=== PATIENT | female | born 1975 | race Caucasian/White ===

== ENCOUNTER 2019-09-14 15:10 | Inpatient (IN) | payer OTHER ==
--- NOTE | 2019-09-14 15:20 | PDOC ---
Rapid Medical Evaluation Time Seen by Provider: 09/14/19 15:17 Medical Evaluation: 09/14/19 15:17 CC: sent by PMD for vaginal bleeding and Cr-12 PE: No focal findings Orders: labs, urine Patient will proceed to ED for continued evaluation. Discharge Disposition - Diagnosis Renal failure - Referrals - Patient Instructions - Post Discharge Activity
[2019-09-14 15:22] VITALS: BMI 27.8
[2019-09-14 15:46] LABS: BASO % 0.7 % (0-2.0); EOS % 2.2 % (0-4.5); HEMATOCRIT 28.3 % (32.4-45.2); HEMOGLOBIN 9.5 GM/dL (10.7-15.3); LYMPH % 26.8 % (8-40); MCH 29.6 pg (25.7-33.7); MCHC 33.5 g/dl (32.0-36.0); MEAN CELL VOLUME 88.4 fl (80-96); MEAN PLT VOLUME 7.8 fl (7.5-11.1); MONO % 5.6 % (3.8-10.2); NEUT % 64.7 % (42.8-82.8); PLATELET COUNT 258 K/MM3 (134-434); RDW 14.7 % (11.6-15.6); WHITE BLOOD COUNT 6.1 K/mm3 (4.0-10.0)
[2019-09-14 15:58] LABS: EPI CELLS 1.4 /HPF (0-5/HPF); HYALINE CASTS 2 /lpf (0-8); PH,URINE 5.5 (5.0-8.0); URINE APPEARANCE CLEAR; URINE BACTERIA 237.3 /hpf (NEGATIVE); URINE BILIRUBIN NEGATIVE (NEGATIVE); URINE COLOR YELLOW; URINE GLUCOSE (UA) NEGATIVE (NEGATIVE); URINE KETONE NEGATIVE (NEGATIVE); URINE LEUK ESTERASE 1+ (NEGATIVE); URINE NITRITE NEGATIVE (NEGATIVE); URINE PROTEIN 1+ (NEGATIVE); URINE RBC 4 /hpf (0-4); URINE UROBILINOGEN 0.2 mg/dL (0.2-1.0); URINE WBC 23 /hpf (0-5)
[2019-09-14 16:02] LABS: INR 0.92 (0.83-1.09); PROTHROMBIN TIME (PATIENT) 10.9 SEC (9.7-13.0)
[2019-09-14 16:20] LABS: ALBUMIN 4.1 g/dl (3.4-5.0); BILIRUBIN,TOTAL 0.3 mg/dL (0.2-1); BLOOD UREA NITROGEN 85.8 mg/dL (7-18); CALCIUM 8.5 mg/dL (8.5-10.1); POTASSIUM 3.9 mmol/L (3.5-5.1)
[2019-09-14 16:34] LABS: CREATININE 12.3 mg/dL (0.55-1.3)
--- NOTE | 2019-09-14 17:12 | PDOC ---
History of Present Illness - General Chief Complaint: Vaginal Bleeding Stated Complaint: VAGINAL BLEEDING Time Seen by Provider: 09/14/19 15:17 History Source: Patient - History of Present Illness Initial Comments: 09/14/19 17:44 Ms. Sims is a 44 y/o woman w/hx HTN, iron deficiency anemia, remote spinal lympoma s/p surgery, chemo p/w vaginal bleeding since April, sent by PCP for creatinine elevation. She reports 1-2 pads vaginal bleeding since April, and presenting to her PCP for evaluation this week who ordered bloodwork. She reports being called that her Cr was very high (12) and that she needed to present to the ED. She reports that her menstrual periods typically irregular. During recent evaluation by payroll human resources assistant, noted "something in the uterus or ovaries that needs to be removed" (does not recall name of payroll human resources assistant). She denies any history of kidney disease, denies any frequent NSAID use, no family hx of renal disease, no recent changes to medications. SHe denies any dysuria, hematuria, frequency, urgency, chest pain, shortness of breath, weakness, nausea, vomiting. PCP: Dr. Villanueva Past History - Past Medical History Allergies/Adverse Reactions: Allergies Allergy/AdvReac Type Severity Reaction Status Date / Time Penicillins Allergy Rash Verified 09/14/19 15:18 - Psycho Social/Smoking Cessation Hx Smoking History: Current every day smoker Have you smoked in the past 12 months: Yes Number of Cigarettes Smoked Daily: 0 Information on smoking cessation initiated: Yes Hx Alcohol Use: Yes Drug/Substance Use Hx: No Review of Systems - Review of Systems Able to Perform ROS?: Yes Comments:: ROS: GENERAL/CONSTITUTIONAL: No fever or chills. No weakness. HEAD, EYES, EARS, NOSE AND THROAT: No change in vision. No ear pain or discharge. No sore throat. CARDIOVASCULAR: No chest pain or shortness of breath RESPIRATORY: No cough, wheezing, or hemoptysis. GASTROINTESTINAL: No nausea, vomiting, diarrhea or constipation. GENITOURINARY: Vaginal bleeding. No dysuria, frequency, or change in urination. MUSCULOSKELETAL: No joint or muscle swelling or pain. No neck or back pain. SKIN: No rash NEUROLOGIC: No headache, vertigo, loss of consciousness, or change in strength/ sensation. ENDOCRINE: No increased thirst. No abnormal weight change HEMATOLOGIC/LYMPHATIC: No anemia, easy bleeding, or history of blood clots. ALLERGIC/IMMUNOLOGIC: No hives or skin allergy. *Physical Exam - Vital Signs Last Vital Signs Temp Pulse Resp BP Pulse Ox 98 F 116 H 18 148/101 H 100 09/14/19 15:18 09/14/19 15:18 09/14/19 15:18 09/14/19 15:18 09/14/19 15:18 - Physical Exam PE: GENERAL: Awake, alert, and fully oriented, in no acute distress HEAD: No signs of trauma, normocephalic, atraumatic EYES: PERRLA, EOMI, sclera anicteric, conjunctiva clear ENT: Auricles normal inspection, hearing grossly normal, nares patent, oropharynx clear without exudates. Moist mucosa NECK: Normal ROM, supple, no lymphadenopathy, JVD, or masses LUNGS: No distress, speaks full sentences, clear to auscultation bilaterally HEART: Regular rate and rhythm, normal S1 and S2, no murmurs, rubs or gallops, peripheral pulses normal and equal bilaterally. ABDOMEN: Soft, nontender, normoactive bowel sounds. No guarding, no rebound. No masses EXTREMITIES : Normal inspection, Normal range of motion, no edema. No clubbing or cyanosis NEUROLOGICAL: Cranial nerves II through XII grossly intact. Normal speech, normal gait, no focal sensorimotor deficits SKIN: Warm, Dry, normal turgor, no rashes or lesions noted Pelvic exam: Cervical os visualized, closed with no lesions or active bleeding or discharge. Normal external genitalia. No cervical motion tenderness. ED Treatment Course - LABORATORY CBC & Chemistry Diagram: 09/16/19 06:30 09/16/19 10:40 - ADDITIONAL ORDERS Additional order review: Laboratory Results 09/14/19 09/14/19 09/14/19 15:31 15:31 15:31 PT with INR 10.90 INR 0.92 Sodium Potassium Chloride Carbon Dioxide Anion Gap BUN Creatinine Est GFR (CKD-EPI)AfAm Est GFR (CKD-EPI)NonAf Random Glucose Calcium Total Bilirubin AST ALT Alkaline Phosphatase Total Protein Albumin Urine Color Yellow Urine Appearance Clear Urine pH 5.5 Ur Specific [place] 1.010 Urine Protein 1+ H Urine Glucose (UA) Negative Urine Ketones Negative Urine Blood 1+ H Urine Nitrite Negative Urine Bilirubin Negative Urine Urobilinogen 0.2 Ur Leukocyte Esterase 1+ H Urine WBC (Auto) 23 Urine RBC (Auto) 4 Urine Casts (Auto) 2 U Epithel Cells (Auto) 1.4 Urine Bacteria (Auto) 237.3 Urine HCG, Qual Negative 09/14/19 15:31 PT with INR INR Sodium 135 L Potassium 3.9 Chloride 107 Carbon Dioxide 16 L Anion Gap 12 BUN 85.8 H Creatinine 12.3 H* Est GFR (CKD-EPI)AfAm 3.82 Est GFR (CKD-EPI)NonAf 3.29 Random Glucose 97 Calcium 8.5 Total Bilirubin 0.3 AST 14 L ALT 12 L Alkaline Phosphatase 120 H Total Protein 8.0 Albumin 4.1 Urine Color Urine Appearance Urine pH Ur Specific [place] Urine Protein Urine Glucose (UA) Urine Ketones Urine Blood Urine Nitrite Urine Bilirubin Urine Urobilinogen Ur Leukocyte Esterase Urine WBC (Auto) Urine RBC (Auto) Urine Casts (Auto) U Epithel Cells (Auto) Urine Bacteria (Auto) Urine HCG, Qual 09/14/19 15:31 RBC 3.20 L MCV 88.4 MCHC 33.5 RDW 14.7 MPV 7.8 Neutrophils % 64.7 Lymphocytes % 26.8 Monocytes % 5.6 Eosinophils % 2.2 Basophils % 0.7 Medical Decision Making - Medical Decision Making 44F w/hx spinal lymphoma s/p chemo/surgery p/w creatinine elevation on outpatient labs, as well as 4 months of vaginal bleeding. Ddx includes acute renal failure. Bleeding may be secondary to fibroids vs malignancy given history and renal failure. Plan: CBC CMP EKG CXR UA Urine culture Urine electrolytes Urine osmolality Serum osmololity Renal ultrasound Nephrology consult pending labs Dispo: Admit --- CMP - Cr - 12.9 UA - 1+ leuk esterase, 1+ blood CBC - Hg - 9.5 --- Case discussed with nephrology (Dr. Garg). Plan for admission for acute renal failure, plan for evaluation for permacath/HD. --- Case discussed with admitting team, patient admitted. Discharge - Discharge Information Problems reviewed: Yes Clinical Impression/Diagnosis: Renal failure Qualifiers: Renal failure chronicity: acute Acute renal failure type: unspecified Qualified Code(s): N17.9 - Acute kidney failure, unspecified Condition: Stable - Admission Yes - Follow up/Referral - Patient Discharge Instructions - Post Discharge Activity
--- NOTE | 2019-09-14 17:40 | PDOC ---
Attending Attestation - Resident Resident Name: Theodore Schulte - ED Attending Attestation I have performed the following: I have examined & evaluated the patient, The case was reviewed & discussed with the resident, I agree w/resident's findings & plan - HPI HPI: 09/18/19 12:49 Ms. Sims is a 44 y/o woman w/hx HTN, iron deficiency anemia, remote spinal lympoma s/p surgery, chemo p/w vaginal bleeding since April, sent by PCP for creatinine elevation. She reports 1-2 pads vaginal bleeding since April, and presenting to her PCP for evaluation this week who ordered bloodwork. She reports being called that her Cr was very high (12) and that she needed to present to the ED. She reports that her menstrual periods typically irregular. During recent evaluation by flat sorter processor, noted "something in the uterus or ovaries that needs to be removed" (does not recall name of flat sorter processor). She denies any history of kidney disease, denies any frequent NSAID use, no family hx of renal disease, no recent changes to medications. SHe denies any dysuria, hematuria, frequency, urgency, chest pain, shortness of breath, weakness, nausea, vomiting. - Physicial Exam PE: 09/14/19 17:38 Agree with the resident's HPI and PE as documented in the electronic medical record. NAD, +anxious. EOMI, PERRL, nl conjunctiva, anicteric; neck supple. lungs clear , +tachycardic, no murmurs, abdomen soft nontender. No rebound, no guarding. Back nontender. VIEIRA x4, no focal neuro deficits. No peripheral edema. normal color for ethnicity, WWP. pelvic exam with resident done, I as team driver. normal pink closed cervix, no active bleeding, no adnexal tenderness noted - Medical Decision Making 09/14/19 17:39 Vital Signs Temp Pulse Resp BP Pulse Ox 98 F 116 H 18 148/101 H 100 09/14/19 15:18 09/14/19 15:18 09/14/19 15:18 09/14/19 15:18 09/14/19 15:18 VS reviewed, +tachy and HTN. no fever abdominal exam unremarkable. pelvic exam unremarkable pt is alwo very anxious, but declines anxiolytic at this time not in pain ,declines analgesia labs and lytes from RME with Cr 12, no prior and pt denies history of renal insufficiency or CKD. UA/lytes sent/pending renal sono no hydro pelvic sono with b/l ov cyst and no torsion, thickened endometrial lining no active bleeding here txs sent, coags and H/H wnl. d/w Dr Garg for nephro cs. admit to medical service for management, nephro eval, dialysis and workup of new renal insufficiency 09/18/19 12:49
[2019-09-14] MEDS ORDERED: ACETAMINOPHEN 500 MG TABLET (FP) PO ONE (19:46)
[2019-09-14] MEDS ORDERED: ACETAMINOPHEN 325 MG TABLET (FP) PO PRN (20:44)
[2019-09-14] MEDS ORDERED: SODIUM CHLORIDE 1,000 ML IV SCH (20:45)
[2019-09-14] MEDS ORDERED: SODIUM CHLORIDE 0.45% 1,000 ML IV SCH (20:45)
--- NOTE | 2019-09-14 20:48 | CONSULT ---
Consult Consult Specialty:: Nephrology Reason for Consultation:: OLI - History of Present Illness Chief Complaint: sent in for abnormal labs History of Present Illness: Pt is a 44 year old female with pmhx of lymphoma, htn and anemia who was sent in for elevated creatinine. She initially went to see her PMD for vaginal bleeding, which she still gets. 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 She denies history of CKD. She is making urine. SHe denies dysuria or hematuria. She denies fevers or chills. She feels that her appetite is not as great as it used to be. She denies frequent NSAID use. She says that her spinal lymphoma was treated with chemo and radiation but does not remember specifics. She denies shortness of breath. She denies lower ext edema. She says [place] her brother was diagnosed with kidney disease two years ago and is now on dialysis. - History Source History Provided By: Patient - Past Medical History Cardio/Vascular: Yes: HTN Heme/Onc: Yes: Anemia Endocrine: Yes: Hypothyroidism - Alcohol/Substance Use Hx Alcohol Use: Yes - Smoking History Smoking history: Current every day smoker Have you smoked in the past 12 months: Yes Aproximately how many cigarettes per day: 0 Home Medications - Allergies Allergies/Adverse Reactions: Allergies Allergy/AdvReac Type Severity Reaction Status Date / Time Penicillins Allergy Rash Verified 09/14/19 15:18 Family Medical History Family Hx Renal Disease: Brother Review of Systems - Review of Systems Constitutional: reports: No Symptoms Eyes: reports: No Symptoms HENT: reports: No Symptoms Neck: reports: No Symptoms Cardiovascular: reports: No Symptoms Respiratory: reports: No Symptoms Gastrointestinal: reports: No Symptoms Genitourinary: reports: No Symptoms Musculoskeletal: reports: No Symptoms Integumentary: reports: No Symptoms Neurological: reports: No Symptoms Endocrine: reports: No Symptoms Hematology/Lymphatic: reports: No Symptoms Psychiatric: reports: No Symptoms Physical Exam Vital Signs: Vital Signs Temperature 98 F 09/14/19 15:18 Pulse Rate 116 H 09/14/19 15:18 Respiratory Rate 18 09/14/19 15:18 Blood Pressure 148/101 H 09/14/19 15:18 O2 Sat by Pulse Oximetry (%) 100 09/14/19 15:18 Constitutional: Yes: Calm Eyes: Yes: Conjunctiva Clear HENT: Yes: Atraumatic Neck: Yes: Supple Cardiovascular: Yes: S1, S2 Respiratory: Yes: CTA Bilaterally Gastrointestinal: Yes: Normal Bowel Sounds, Soft Renal/: Yes: WNL Musculoskeletal: Yes: WNL Edema: No Neurological: Yes: Oriented Psychiatric: Yes: Oriented Labs: CBC, BMP 09/14/19 15:31 09/14/19 15:31 Problem List - Problems (1) Acute renal failure (ARF) Code(s): N17.9 - ACUTE KIDNEY FAILURE, UNSPECIFIED (2) HTN (hypertension) Code(s): I10 - ESSENTIAL (PRIMARY) HYPERTENSION 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 Current Medications Generic Name Dose Route Start Last Admin Trade Name Freq PRN Reason Stop Dose Admin Acetaminophen 650 mg 09/14/19 20:44 Tylenol - PO Q8H PRN PAIN LEVEL 1 - 3 Sodium Chloride 1,000 mls @ 60 mls/hr 09/14/19 20:45 Normal Saline - IV ASDIR PATRICIO Sodium Chloride 1,000 mls @ 50 mls/hr 09/14/19 20:45 1/2 Normal Saline IV 09/15/19 20:44 ASDIR PATRICIO Sodium Bicarbonate 650 mg 09/14/19 20:48 Sodium Bicarbonate - PO BID PATRICIO Impression 1. OLI 2. anemia 3. vaginal bleeding 4. hx of spinal lymphoma 5. hypothyroisism 6. htn Plan - will start fluids - will send serologic workup, júnior anca ds dna - pts brother on HD, I called him per her request [phone], he does not know the etiology of his renal failure - renal ultrasound report reviewed - discussed treatment options including HD, PD and transplant. Pt wants to think about things and talk more tomorrow - will start po bicarb - scale shooter eval for bleeding
--- NOTE | 2019-09-14 21:17 | HP ---
Admitting History and Physical - Primary Care Physician PCP: Ant Villanueva - Admission Chief Complaint: Vaginal Bleeding, Abnormal Lab Value History of Present Illness: This is a 44 y/o woman with a PMHx of Asthma, RAVI, ?HTN, Hypothyroidism, remote Spinal Lymphoma (s/p surgery, chemo), Chronic Back Pain. Who presents to the ED sent in by her PCp for elevated Cr, prolonged vaginal bleeding. Patient reports having vaginal bleeding with 1/2 dollar size clots since last April. She reports going to her ENGINE MANAGER last week for same. Per the patient after the pelvic exam, she was told the doctor "felt something" in her uterus which she had to have an US. Patient reports having blood work done last week, per her PCP. She was told by her PCP that her Cr was 12 and that she would be admitted to the hospital. Patient reports having chronic back pain which she believed was due to her Spinal Lymphoma hx. Patient denies fever, chills, cough, SOB, CP, palpitations, AP, N/V/D, constipation. History Source: Patient Limitations to Obtaining History: No Limitations - Past Medical History Cardiovascular: Yes: Other (Elevated BP) Pulmonary: Yes: Asthma ...: No Heme/Onc: Yes: Anemia, Other (Spinal Lymphoma (s/p surgery, chemo)) Endocrine: Yes: Hypothyroidism - Past Surgical History Past Surgical History: Yes: Cholecystectomy Additional Past Surgical History: Partial Thyroidectomy - Smoking History Smoking history: Never smoked Have you smoked in the past 12 months: No Aproximately how many cigarettes per day: 0 - Alcohol/Substance Use Hx Alcohol Use: No History of Substance Use: reports: Marijuana (daily use) - Social History Usual Living Arrangement: Yes: With Significant Other Do you think of yourself as: Straight/Heterosexual ADL: Independent History of Recent Travel: No Home Medications - Allergies Allergies/Adverse Reactions: Allergies Allergy/AdvReac Type Severity Reaction Status Date / Time Penicillins Allergy Rash Verified 09/14/19 15:18 Family Medical History Family Hx Respiratory Disorders: Mother (Respiratory Failure- ) Other Family History: Renal (ESRD)- Brother Review of Systems - Review of Systems Constitutional: reports: No Symptoms Eyes: reports: No Symptoms HENT: reports: No Symptoms Neck: reports: No Symptoms Cardiovascular: reports: No Symptoms Respiratory: reports: No Symptoms Gastrointestinal: reports: No Symptoms Genitourinary: reports: Vaginal Bleeding Breasts: reports: No Symptoms Reported Musculoskeletal: reports: Back Pain Integumentary: reports: No Symptoms Neurological: reports: No Symptoms Endocrine: reports: No Symptoms Hematology/Lymphatic: reports: No Symptoms Psychiatric: reports: No Symptoms Pain Intensity: 4 Physical Examination Vital Signs: Vital Signs Temperature 98 F 09/14/19 15:18 Pulse Rate 116 H 09/14/19 15:18 Respiratory Rate 18 09/14/19 15:18 Blood Pressure 148/101 H 09/14/19 15:18 O2 Sat by Pulse Oximetry (%) 100 09/14/19 15:18 Constitutional: Yes: No Distress, Calm, Pallor Eyes: Yes: WNL, Conjunctiva Clear, EOM Intact, PERRL HENT: Yes: WNL, Atraumatic, Normocephalic Neck: Yes: WNL, Supple, Trachea Midline Cardiovascular: Yes: WNL, Regular Rate and Rhythm, S1, S2 Respiratory: Yes: WNL, Regular, CTA Bilaterally Gastrointestinal: Yes: WNL, Normal Bowel Sounds, Soft ...Rectal Exam: Yes: Deferred Renal/: Yes: WNL, Menses Present (scant). No: CVA Tenderness - Left, CVA Tenderness - Right Breast(s): Yes: WNL Musculoskeletal: Yes: WNL Extremities: Yes: WNL Edema: No Peripheral Pulses WNL: Yes Integumentary: Yes: WNL Neurological: Yes: WNL, Alert, Oriented, Cran Nerves II-XII Intact ...Motor Strength: WNL Psychiatric: Yes: WNL, Alert, Oriented Labs: CBC, BMP 09/14/19 15:31 09/14/19 15:31 Laboratory Results - last 24 hr 09/14/19 09/14/19 09/14/19 15:31 15:31 15:31 WBC 6.1 RBC 3.20 L Hgb 9.5 L Hct 28.3 L MCV 88.4 MCH 29.6 MCHC 33.5 RDW 14.7 Plt Count 258 MPV 7.8 Absolute Neuts (auto) 3.9 Neutrophils % 64.7 Lymphocytes % 26.8 Monocytes % 5.6 Eosinophils % 2.2 Basophils % 0.7 Nucleated RBC % 0 PT with INR INR Sodium 135 L Potassium 3.9 Chloride 107 Carbon Dioxide 16 L Anion Gap 12 BUN 85.8 H Creatinine 12.3 H* Est GFR (CKD-EPI)AfAm 3.82 Est GFR (CKD-EPI)NonAf 3.29 Random Glucose 97 Serum Osmolality 314 H Calcium 8.5 Total Bilirubin 0.3 AST 14 L ALT 12 L Alkaline Phosphatase 120 H Total Protein 8.0 Albumin 4.1 Urine Color Urine Appearance Urine pH Ur Specific [place] Urine Protein Urine Glucose (UA) Urine Ketones Urine Blood Urine Nitrite Urine Bilirubin Urine Urobilinogen Ur Leukocyte Esterase Urine WBC (Auto) Urine RBC (Auto) Urine Casts (Auto) U Epithel Cells (Auto) Urine Bacteria (Auto) Urine Osmolality Ur Random Creatinine U Random Total Protein Ur Random Sodium Urine HCG, Qual Negative 09/14/19 09/14/19 09/14/19 15:31 15:31 18:46 WBC RBC Hgb Hct MCV MCH MCHC RDW Plt Count MPV Absolute Neuts (auto) Neutrophils % Lymphocytes % Monocytes % Eosinophils % Basophils % Nucleated RBC % PT with INR 10.90 INR 0.92 Sodium Potassium Chloride Carbon Dioxide Anion Gap BUN Creatinine Est GFR (CKD-EPI)AfAm Est GFR (CKD-EPI)NonAf Random Glucose Serum Osmolality Calcium Total Bilirubin AST ALT Alkaline Phosphatase Total Protein Albumin Urine Color Yellow Urine Appearance Clear Urine pH 5.5 Ur Specific [place] 1.010 Urine Protein 1+ H Urine Glucose (UA) Negative Urine Ketones Negative Urine Blood 1+ H Urine Nitrite Negative Urine Bilirubin Negative Urine Urobilinogen 0.2 Ur Leukocyte Esterase 1+ H Urine WBC (Auto) 23 Urine RBC (Auto) 4 Urine Casts (Auto) 2 U Epithel Cells (Auto) 1.4 Urine Bacteria (Auto) 237.3 Urine Osmolality Ur Random Creatinine 59.0 U Random Total Protein Ur Random Sodium Urine HCG, Qual 09/14/19 09/14/19 09/14/19 18:46 18:46 18:46 WBC RBC Hgb Hct MCV MCH MCHC RDW Plt Count MPV Absolute Neuts (auto) Neutrophils % Lymphocytes % Monocytes % Eosinophils % Basophils % Nucleated RBC % PT with INR INR Sodium Potassium Chloride Carbon Dioxide Anion Gap BUN Creatinine Est GFR (CKD-EPI)AfAm Est GFR (CKD-EPI)NonAf Random Glucose Serum Osmolality Calcium Total Bilirubin AST ALT Alkaline Phosphatase Total Protein Albumin Urine Color Urine Appearance Urine pH Ur Specific [place] Urine Protein Urine Glucose (UA) Urine Ketones Urine Blood Urine Nitrite Urine Bilirubin Urine Urobilinogen Ur Leukocyte Esterase Urine WBC (Auto) Urine RBC (Auto) Urine Casts (Auto) U Epithel Cells (Auto) Urine Bacteria (Auto) Urine Osmolality 208 L Ur Random Creatinine U Random Total Protein 32.7 H Ur Random Sodium 34 L Urine HCG, Qual Intake & Output 09/12/19 09/13/19 09/14/19 09/15/19 23:59 23:59 23:59 23:59 Weight 71.214 kg Current Medications Generic Name Dose Route Start Last Admin Trade Name Marti PRN Reason Stop Dose Admin Acetaminophen 650 mg 09/14/19 20:44 Tylenol - PO Q8H PRN PAIN LEVEL 1 - 3 Sodium Chloride 1,000 mls @ 50 mls/hr 09/14/19 20:45 09/14/19 22:45 1/2 Normal Saline IV 09/15/19 20:44 50 mls/hr ASDIR PATRICIO Administration Sodium Bicarbonate 650 mg 09/14/19 20:48 09/14/19 22:47 Sodium Bicarbonate - PO 650 mg BID PATRICIO Administration Prescription Monitoring Program Others' Prescriptions Patient Name: Aurora Sims Date: 1975 Address: [address] [place] [address] Sex: Female Rx Written Rx Dispensed Drug Quantity Days Supply Prescriber Name 08/21/2019 08/22/2019 oxycodone-acetaminophen 7.5-325 mg tablet 90 30 Yanci Madrid (CLARA) 07/17/2019 07/22/2019 oxycodone-acetaminophen 7.5-325 mg tablet 90 30 Yanci Madrid ([place]) 06/20/2019 06/24/2019 oxycodone-acetaminophen 7.5-325 mg tablet 90 30 Yanci Madrid (PA) 05/24/2019 05/27/2019 oxycodone-acetaminophen 7.5-325 mg tablet 90 30 Yanic Madrid (CLARA) 04/26/2019 04/28/2019 oxycodone-acetaminophen 7.5-325 mg tablet 90 30 Yanci Madrid (CLARA) 03/29/2019 03/29/2019 oxycodone-acetaminophen 7.5-325 mg tablet 90 30 Yanci Madrid (CLARA) 02/23/2019 02/23/2019 oxycodone-acetaminophen 7.5-325 mg tablet 90 30 Yanci Madrid ([place]) 01/23/2019 01/23/2019 oxycodone-acetaminophen 7.5-325 mg tablet 90 30 Yanci Madrid (CLARA) 12/21/2018 12/21/2018 oxycodone-acetaminophen 7.5-325 mg tablet 90 30 Yanci Madrid (CLARA) 11/22/2018 11/22/2018 oxycodone-acetaminophen 7.5-325 mg tablet 90 30 Jeronimo Sandoval MD 11/07/2018 11/08/2018 oxycodone-acetaminophen 7.5-325 mg tablet 21 7 Jeronimo Sandoval MD 09/14/2018 10/04/2018 oxycodone-acetaminophen 7.5-325 mg tablet 90 30 Virgilio Sunshine M Imaging - Results Chest X-ray: Report Reviewed, Image Reviewed Ultrasound: Report Reviewed, Image Reviewed Problem List - Problems (1) Acute renal failure (ARF) 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: ?etiology Patient denies frequent NSAID use Nephrology following Will start gentle IVF Probable- dialysis if Cr does not improve post IVF Cardoso Catheter for INOs Urine Osmo, Na Spot, Urine lytes-pending UA- +1 protein, +1blood, +1 leukocyte esterase, 23 WBCs, 237 bacteria Urine Culture pending Renal US- reviewed Bladder US-reviewed Monitor CBC, BMP Monitor vitals Code(s): N17.9 - ACUTE KIDNEY FAILURE, UNSPECIFIED (2) RAVI (iron deficiency anemia) 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: stable No current med Monitor CBC Hgb9.5, Hct 28.3 Will transfuse if HGb < 7.0 Code(s): D50.9 - IRON DEFICIENCY ANEMIA, UNSPECIFIED (3) Vaginal bleeding 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: Patient reports Menorrhagia with clots since last April- bleeding scant at present Renal US-6.4cm, 4.7cm right ovarian cysts. 2.3cm left ovarian cyst Hgb 9.5 Hct 28.3 Upreg-neg Appreciate ENGINE MANAGER consult Monitor CBC, BMP Monitor vitals Hold ACs Code(s): N93.9 - ABNORMAL UTERINE AND VAGINAL BLEEDING, UNSPECIFIED (4) HTN (hypertension) 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: sub optimal Not on current medications Consider ARB, will avoid ACE1 secondary to ARF Monitor BP Code(s): I10 - ESSENTIAL (PRIMARY) HYPERTENSION (5) Hypothyroidism 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: Continue Levothyroxine TSH in am Code(s): E03.9 - HYPOTHYROIDISM, UNSPECIFIED (6) Chronic back pain 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: Likely secondary to spinal lymphoma hx s/p sx and chemo, per pt [place] [employer]ER OPERATOR SURFACE verified- oxycodone-acetaminophen 7.5-325mg (last filled 08/22/19) Tylenol prn (Painscale 1-5) Oxycodone prn (Painscale 6-10) Code(s): M54.9 - DORSALGIA, UNSPECIFIED; G89.29 - OTHER CHRONIC PAIN (7) Asymptomatic bacteriuria 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: UA- +1 protein, +1 blood, +1 leukocyte esterase, 23 WBC, 237 Bacteria Urine Culture-pending Will not treat, awaiting culture results- since patient is asymptomatic: denies dysuria, frequency, burning, afebrile, no leukocytosis Monitor CBC Monitor vitals Code(s): R82.71 - BACTERIURIA (8) Marijuana smoker, continuous 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: counseled patient on marijuana cessation Code(s): F12.90 - CANNABIS USE, UNSPECIFIED, UNCOMPLICATED 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 This is a 44 y/o woman with a PMHx of HTN, RAVI, Hypothyroidism, remote Spinal Lympoma (s/p surgery, chemo), Chronic Back Pain. Admitted to M/S for Acute Renal Failure, Menorrhagia for further evaluation of their emergent condition. Plan: See Problem List FEN NS@60ml/hr Replete lytes prn NPO DVT ppx OOB SCDs Hold AC secondary to Menorrhagia Code Status: Full Code Dispo- Requires Inpatient Care Visit type - Emergency Visit Emergency Visit: Yes ED Registration Date: 09/14/19 Care time: The patient presented to the Emergency Department on the above date and was hospitalized for further evaluation of their emergent condition. - New Patient This patient is new to me today: Yes Date on this admission: 09/14/19 - Critical Care Critical Care patient: No
[2019-09-14] MEDS: SODIUM BICARBONATE 650 MG TABLET PO SCH ×2 (22:45→22:47)
[2019-09-15] MEDS ORDERED: ACETAMINOPHEN 325 MG TABLET (FP) ONE (04:21)
[2019-09-15] MEDS ORDERED: LEVOTHYROXINE NA 25 MCG TABLET (FP) PO SCH (07:19)
[2019-09-15] MEDS ORDERED: oxyCODONE HCL 5 MG TABLET PO PRN (07:24)
[2019-09-15 08:39] LABS: BASO % 0.7 % (0-2.0); EOS % 2.3 % (0-4.5); HEMOGLOBIN 8.9 GM/dL (10.7-15.3); LYMPH % 28.8 % (8-40); MCH 30.3 pg (25.7-33.7); MCHC 34.4 g/dl (32.0-36.0); MEAN CELL VOLUME 88.1 fl (80-96); MONO % 6.4 % (3.8-10.2); NEUT % 61.8 % (42.8-82.8); PLATELET COUNT 236 K/MM3 (134-434); RBC 2.95 M/mm3 (3.60-5.2); RDW 14.5 % (11.6-15.6); WHITE BLOOD COUNT 4.4 K/mm3 (4.0-10.0)
[2019-09-15 09:11] LABS: BLOOD UREA NITROGEN 90.1 mg/dL (7-18); POTASSIUM 3.6 mmol/L (3.5-5.1)
[2019-09-15 09:15] LABS: CREATININE 12.6 mg/dL (0.55-1.3)
[2019-09-15] MEDS: SODIUM BICARBONATE 650 MG TABLET PO SCH ×2 (09:39→22:33)
--- NOTE | 2019-09-15 11:09 | PN ---
Progress Note, Physician - Current Medication List Current Medications: Active Medications Acetaminophen (Tylenol -) 650 mg PO Q8H PRN PRN Reason: PAIN LEVEL 1 - 3 Sodium Chloride (1/2 Normal Saline) 1,000 mls @ 50 mls/hr IV ASDIR [facility] Stop: 09/15/19 20:44 Last Admin: 09/14/19 22:45 Dose: 50 mls/hr Levothyroxine Sodium (Synthroid -) 25 mcg PO DAILY@0700 [facility] Last Admin: 09/15/19 09:39 Dose: 25 mcg Oxycodone HCl (Roxicodone -) 5 mg PO Q8H PRN PRN Reason: PAIN LEVEL 7 - 10 Sodium Bicarbonate (Sodium Bicarbonate -) 650 mg PO BID [facility] Last Admin: 09/15/19 09:39 Dose: 650 mg - Objective Vital Signs: Vital Signs Temperature 98.8 F 09/14/19 23:25 Pulse Rate 83 09/15/19 06:43 Respiratory Rate 18 09/15/19 06:43 Blood Pressure 119/66 09/15/19 06:43 O2 Sat by Pulse Oximetry (%) 99 09/15/19 06:43 Labs: CBC, BMP 09/15/19 08:10 09/15/19 08:10 INR, PTT INR 0.92 (0.83-1.09) 09/14/19 15:31 Problem List - Problems (1) Asymptomatic bacteriuria Code(s): R82.71 - BACTERIURIA (2) HTN (hypertension) Code(s): I10 - ESSENTIAL (PRIMARY) HYPERTENSION (3) Hypothyroidism Code(s): E03.9 - HYPOTHYROIDISM, UNSPECIFIED (4) RAVI (iron deficiency anemia) Code(s): D50.9 - IRON DEFICIENCY ANEMIA, UNSPECIFIED (5) Renal failure Code(s): N19 - UNSPECIFIED KIDNEY FAILURE (6) Vaginal bleeding Code(s): N93.9 - ABNORMAL UTERINE AND VAGINAL BLEEDING, UNSPECIFIED
[2019-09-15] MEDS ORDERED: MIDAZOLAM HCL 2 MG/2 ML SINGLE DOSE VIAL ONE (11:27)
[2019-09-15] MEDS ORDERED: PROPOFOL 20 ML ONE ×2 (11:27)
--- NOTE | 2019-09-15 11:50 | EKG ---
Test Reason : Blood Pressure : / mmHG Vent. Rate : 081 BPM Atrial Rate : 081 BPM P-R Int : 130 ms QRS Dur : 076 ms QT Int : 408 ms P-R-T Axes : 058 051 055 degrees QTc Int : 473 ms SINUS RHYTHM WITH PREMATURE ATRIAL COMPLEXES NO PREVIOUS ECGS AVAILABLE Confirmed by AGGIE DESAI MD ([id number]) on 09/15/2019 11:50:02 AM Referred By: Confirmed By:AGGIE DESAI MD
[2019-09-15] MEDS ORDERED: ceFAZolin SODIUM 1 GM VIAL IVPB ONE (11:57)
[2019-09-15] MEDS ORDERED: LIDOCAINE HCL 1%, 10 MG/ML (20ML VIAL) NR ONE (12:14)
--- NOTE | 2019-09-15 12:30 | OP ---
Operative Note - Note: Operative Date: 09/15/19 Pre-Operative Diagnosis: ARF Operation: Insertion of permacath Post-Operative Diagnosis: Same as Pre-op Surgeon: Arias Emery Anesthesia: Fractional Estimated Blood Loss (mls): 20 Operative Report Dictated: Yes
[2019-09-15] MEDS ORDERED: SODIUM CHLORIDE 0.45% 1,000 ML IV SCH (13:04)
[2019-09-15] MEDS ORDERED: oxyCODONE HCL 5 MG TABLET PO ONE (14:05)
[2019-09-15] MEDS ORDERED: SODIUM CHLORIDE 250 ML IV PRN ×2 (14:31→19:38)
--- NOTE | 2019-09-15 14:34 | PN ---
Progress Note, Physician History of Present Illness: Pt seen and examined at bedside. She is awake and alert. SHe had the permacath placed today. - Current Medication List Current Medications: Active Medications Acetaminophen (Tylenol -) 650 mg PO Q8H PRN PRN Reason: PAIN LEVEL 1 - 3 Sodium Chloride (1/2 Normal Saline) 1,000 mls @ 50 mls/hr IV ASDIR PATRICIO Stop: 09/15/19 20:44 Levothyroxine Sodium (Synthroid -) 25 mcg PO DAILY@0700 PAT[facility]IC[facility] Ondansetron HCl (Zofran Injection) 4 mg IVPUSH Q6H PRN PRN Reason: NAUSEA AND/OR VOMITING Oxycodone HCl (Roxicodone -) 5 mg PO Q8H PRN PRN Reason: PAIN LEVEL 7 - 10 Sodium Bicarbonate (Sodium Bicarbonate -) 650 mg PO BID PATRICIO - Objective Vital Signs: Vital Signs Temperature 98.0 F 09/15/19 14:00 Pulse Rate 82 09/15/19 14:00 Respiratory Rate 16 09/15/19 14:00 Blood Pressure 146/88 09/15/19 14:00 O2 Sat by Pulse Oximetry (%) 100 09/15/19 14:00 Constitutional: Yes: Calm Eyes: Yes: Conjunctiva Clear HENT: Yes: Atraumatic Neck: Yes: Supple Cardiovascular: Yes: S1, S2 Respiratory: Yes: CTA Bilaterally Gastrointestinal: Yes: Soft Genitourinary: Yes: WNL Musculoskeletal: Yes: WNL Edema: No Neurological: Yes: Oriented Psychiatric: Yes: Oriented Labs: CBC, BMP 09/15/19 08:10 09/15/19 08:10 INR, PTT INR 0.92 (0.83-1.09) 09/14/19 15:31 Problem List - Problems (1) Acute renal failure (ARF) Code(s): N17.9 - ACUTE KIDNEY FAILURE, UNSPECIFIED (2) HTN (hypertension) Code(s): I10 - ESSENTIAL (PRIMARY) HYPERTENSION 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 Current Medications Generic Name Dose Route Start Last Admin Trade Name Freq PRN Reason Stop Dose Admin Acetaminophen 650 mg 09/15/19 13:04 Tylenol - PO Q8H PRN PAIN LEVEL 1 - 3 Sodium Chloride 1,000 mls @ 50 mls/hr 09/15/19 13:04 1/2 Normal Saline IV 09/15/19 20:44 ASDIR PATRICIO Sodium Chloride 250 mls @ 3,000 mls/hr 09/15/19 14:31 Normal Saline - IV 09/16/19 14:31 PRN PRN Hypotension during Dialysis Levothyroxine Sodium 25 mcg 09/16/19 07:00 Synthroid - PO DAILY@0700 [facility] Ondansetron HCl 4 mg 09/15/19 14:05 Zofran Injection IVPUSH Q6H PRN NAUSEA AND/OR VOMITING Oxycodone HCl 5 mg 09/15/19 13:04 Roxicodone - PO Q8H PRN PAIN LEVEL 7 - 10 Sodium Bicarbonate 650 mg 09/15/19 22:00 Sodium Bicarbonate - PO BID [facility] Impression 1. OLI 2. anemia 3. vaginal bleeding 4. hx of spinal lymphoma 5. hypothyroisism 6. htn Plan - pt s/p permacath - d/c fluids - d/c po bicarb - HD today - serlogic workup ordered - discussed PD option again, she will think about it - discussed kidney biopsy, she will think about it
[2019-09-15] MEDS ORDERED: ONDANSETRON 4 MG/2 ML VIAL ONE (14:46)
[2019-09-15] MEDS: ONDANSETRON 4 MG/2 ML VIAL IVPUSH PRN (14:53)
[2019-09-15] MEDS ORDERED: oxyCODONE HCL 5 MG TABLET ONE (15:08)
--- NOTE | 2019-09-15 15:34 | PN ---
Progress Note, Physician Chief Complaint: abnormal lab results, vaginal bleeding reports vaginal bleeding much more scarce today, using panty liner nauseas, vomitted in dialysis History of Present Illness: 44 year old female with PMH asthma, RAVI, HTN, hypothyroidism, remote spinal lymphoma, chronic back pain presented to the ED with vaginal bleed and cr of 12 , has never been told she had ckd. - Current Medication List Current Medications: Active Medications Acetaminophen (Tylenol -) 650 mg PO Q8H PRN PRN Reason: PAIN LEVEL 1 - 3 Sodium Chloride (1/2 Normal Saline) 1,000 mls @ 50 mls/hr IV ASDIR PATRICIO Stop: 09/15/19 20:44 Sodium Chloride (Normal Saline -) 250 mls @ 3,000 mls/hr IV PRN PRN PRN Reason: Hypotension during Dialysis Stop: 09/16/19 14:31 Levothyroxine Sodium (Synthroid -) 25 mcg PO DAILY@0700 [facility] Ondansetron HCl (Zofran Injection) 4 mg IVPUSH Q6H PRN PRN Reason: NAUSEA AND/OR VOMITING Last Admin: 09/15/19 14:53 Dose: 4 mg Oxycodone HCl (Roxicodone -) 5 mg PO Q8H PRN PRN Reason: PAIN LEVEL 7 - 10 Sodium Bicarbonate (Sodium Bicarbonate -) 650 mg PO BID [facility] - Objective Vital Signs: Vital Signs Temperature 97.7 F 09/15/19 14:57 Pulse Rate 81 09/15/19 15:10 Respiratory Rate 18 09/15/19 15:10 Blood Pressure 148/85 09/15/19 15:10 O2 Sat by Pulse Oximetry (%) 100 09/15/19 14:00 Constitutional: Yes: No Distress, Calm HENT: Yes: Atraumatic, Normocephalic Neck: Yes: Supple Cardiovascular: Yes: Regular Rate and Rhythm Respiratory: Yes: Regular, CTA Bilaterally Gastrointestinal: Yes: Normal Bowel Sounds, Soft Extremities: Yes: WNL Integumentary: Yes: WNL Wound/Incision: Yes: Other (permcath to right chest wall) Labs: CBC, BMP 09/15/19 08:10 09/15/19 08:10 INR, PTT INR 0.92 (0.83-1.09) 09/14/19 15:31 Problem List - Problems (1) Vaginal bleeding 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: medical social worker consult no dvt prophylaxis renal/bladder us with cysts noted patient reports vaginal bleeding much more scarce today Code(s): N93.9 - ABNORMAL UTERINE AND VAGINAL BLEEDING, UNSPECIFIED (2) Acute renal failure (ARF) 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: nephrology consult appreciated vascular consult appreciated permcath placed today in dialysis during examination on sodium bicarb renal/bladder us noted plan TBD Code(s): N17.9 - ACUTE KIDNEY FAILURE, UNSPECIFIED (3) Asymptomatic bacteriuria 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: urine culture pending Code(s): R82.71 - BACTERIURIA (4) Chronic back pain 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: cont home meds Code(s): M54.9 - DORSALGIA, UNSPECIFIED; G89.29 - OTHER CHRONIC PAIN (5) HTN (hypertension) 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: ? home meds on dialysis monitor trends Code(s): I10 - ESSENTIAL (PRIMARY) HYPERTENSION (6) Hypothyroidism 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: continue synthroid check t4 Code(s): E03.9 - HYPOTHYROIDISM, UNSPECIFIED (7) RAVI (iron deficiency anemia) Code(s): D50.9 - IRON DEFICIENCY ANEMIA, UNSPECIFIED
[2019-09-15] MEDS: ACETAMINOPHEN 325 MG TABLET (FP) PO PRN (17:50)
[2019-09-15] MEDS: oxyCODONE HCL 5 MG TABLET PO PRN (23:39)
[2019-09-16] MEDS: LEVOTHYROXINE NA 25 MCG TABLET (FP) PO SCH (06:32)
[2019-09-16 08:46] LABS: BASO % 0.9 % (0-2.0); EOS % 2.6 % (0-4.5); HEMATOCRIT 22.6 % (32.4-45.2); HEMOGLOBIN 7.8 GM/dL (10.7-15.3); LYMPH % 33.9 % (8-40); MCH 30.3 pg (25.7-33.7); MCHC 34.6 g/dl (32.0-36.0); MEAN CELL VOLUME 87.5 fl (80-96); MEAN PLT VOLUME 8.6 fl (7.5-11.1); MONO % 6.9 % (3.8-10.2); NEUT % 55.7 % (42.8-82.8); PLATELET COUNT 197 K/MM3 (134-434); RBC 2.59 M/mm3 (3.60-5.2); RDW 14.2 % (11.6-15.6); WHITE BLOOD COUNT 5.1 K/mm3 (4.0-10.0)
[2019-09-16] MEDS: ONDANSETRON 4 MG/2 ML VIAL IVPUSH PRN (08:48)
[2019-09-16 09:12] LABS: COCAINE, UR NEGATIVE ng/ml (CUTOFF=300); METHADONE, UR NEGATIVE ng/ml (CUTOFF=300); OPIATES, URI NEGATIVE ng/ml (CUTOFF=300); PHENCYCLIDINE,URINE NEGATIVE ng/ml (CUTOFF=25); URINE AMPHETAMINES NEGATIVE ng/ml (CUTOFF=500); URINE BARBITURATES NEGATIVE ng/ml (CUTOFF=200); URINE BENZODIAZEPINES NEGATIVE ng/ml (CUTOFF=200)
[2019-09-16 09:20] LABS: ALBUMIN 3.6 g/dl (3.4-5.0); BILIRUBIN,TOTAL 0.4 mg/dL (0.2-1); BLOOD UREA NITROGEN 51.6 mg/dL (7-18); CALCIUM 8.7 mg/dL (8.5-10.1); POTASSIUM 3.1 mmol/L (3.5-5.1); TOT PROT 6.8 g/dl (6.4-8.2)
[2019-09-16 09:23] LABS: CREATININE 8.5 mg/dL (0.55-1.3)
--- NOTE | 2019-09-16 11:09 | PN ---
Progress Note, Physician Chief Complaint: ESRD History of Present Illness: Previous notes and events reviewed awake and alert NAD s/p R chest permacath placement for HD received HD yesterday and today downtrend in BUN/Cr complain of vomiting during HD - Current Medication List Current Medications: Active Medications Acetaminophen (Tylenol -) 650 mg PO Q8H PRN PRN Reason: PAIN LEVEL 1 - 3 Last Admin: 09/15/19 17:50 Dose: 650 mg Sodium Chloride (Normal Saline -) 250 mls @ 3,000 mls/hr IV PRN PRN PRN Reason: Hypotension during Dialysis Stop: 09/16/19 14:31 Sodium Chloride (Normal Saline -) 250 mls @ 3,000 mls/hr IV PRN PRN PRN Reason: Hypotension during Dialysis Stop: 09/16/19 19:39 Levothyroxine Sodium (Synthroid -) 25 mcg PO DAILY@0700 [facility] Last Admin: 09/16/19 06:32 Dose: 25 mcg Oxycodone HCl (Roxicodone -) 5 mg PO Q8H PRN PRN Reason: PAIN LEVEL 7 - 10 Last Admin: 09/15/19 23:39 Dose: 5 mg Sodium Bicarbonate (Sodium Bicarbonate -) 650 mg PO BID [facility] Last Admin: 09/15/19 22:33 Dose: 650 mg - Objective Vital Signs: Vital Signs Temperature 98.8 F 09/16/19 08:05 Pulse Rate 72 09/16/19 10:45 Respiratory Rate 18 09/16/19 10:45 Blood Pressure 122/94 09/16/19 10:45 O2 Sat by Pulse Oximetry (%) 99 09/15/19 21:00 Constitutional: Yes: No Distress, Calm Eyes: Yes: Conjunctiva Clear HENT: Yes: Atraumatic Cardiovascular: Yes: Regular Rate and Rhythm Respiratory: Yes: Regular, CTA Bilaterally Gastrointestinal: Yes: Normal Bowel Sounds, Soft Musculoskeletal: Yes: WNL Extremities: Yes: WNL Edema: No Neurological: Yes: Alert, Oriented Psychiatric: Yes: Alert, Oriented Labs: CBC, BMP 09/16/19 06:30 INR, PTT INR 0.92 (0.83-1.09) 09/14/19 15:31 Problem List - Problems (1) Asymptomatic bacteriuria 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: UA shows 1+ leuks, 1+ blood, 1+ protein UC pending no leukocytosis afebrile Code(s): R82.71 - BACTERIURIA (2) HTN (hypertension) 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: monitor BP Code(s): I10 - ESSENTIAL (PRIMARY) HYPERTENSION (3) Hypothyroidism 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: Levothyroxine Code(s): E03.9 - HYPOTHYROIDISM, UNSPECIFIED (4) RAVI (iron deficiency anemia) 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: Hg 7.8 anemia profile shows low Iron, low TIBC monitor Hg daily transfuse for Hg <7.0 to avoid fluid overload start on Iron Polysaccharide Code(s): D50.9 - IRON DEFICIENCY ANEMIA, UNSPECIFIED (5) Renal failure 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: Renal on board s/p permacath placement yesterday received HD x 2 BUN/Cr with downtrend 15.8/2.9 monitor renal function daily Renal US shows no hydronephrosis, right renal uuper pole cortex appears mildly echogenic 2.3cm nonspecific focus Code(s): N19 - UNSPECIFIED KIDNEY FAILURE (6) Vaginal bleeding 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: AIRCRAFT DESIGN ENGINEER consult Hg 7.8 US shows 0.8cm endometrial thickening, 6.4cm and 4.7cm right ovarian cyst containing intraluminal debris, 2.3cm left ovarian cyst Code(s): N93.9 - ABNORMAL UTERINE AND VAGINAL BLEEDING, UNSPECIFIED 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 see problem list
[2019-09-16] MEDS: SODIUM BICARBONATE 650 MG TABLET PO SCH ×2 (11:13→21:02)
[2019-09-16 11:40] LABS: BLOOD UREA NITROGEN 15.8 mg/dL (7-18); CREATININE 2.9 mg/dL (0.55-1.3)
[2019-09-16 14:07] LABS: PHOSPHOROUS 5.4 mg/dL (2.5-4.9)
[2019-09-16] MEDS: oxyCODONE HCL 5 MG TABLET PO PRN (14:32)
[2019-09-16 21:11] LABS: HEP B CORE AB, TOT Negative (Negative)
--- NOTE | 2019-09-16 23:28 | PN ---
Progress Note (short form) - Note Progress Note: Problems 1. OLI 2. anemia 3. vaginal bleeding 4. hx of spinal lymphoma 5. hypothyroisism 6. htn Current Medications Acetaminophen (Tylenol -) 650 mg PO Q8H PRN PRN Reason: PAIN LEVEL 1 - 3 Last Admin: 09/15/19 17:50 Dose: 650 mg Sodium Chloride (Normal Saline -) 250 mls @ 3,000 mls/hr IV PRN PRN PRN Reason: Hypotension during Dialysis Stop: 09/16/19 14:31 Levothyroxine Sodium (Synthroid -) 25 mcg PO DAILY@0700 [facility] Last Admin: 09/16/19 06:32 Dose: 25 mcg Oxycodone HCl (Roxicodone -) 5 mg PO Q8H PRN PRN Reason: PAIN LEVEL 7 - 10 Last Admin: 09/16/19 14:32 Dose: 5 mg Sodium Bicarbonate (Sodium Bicarbonate -) 650 mg PO BID [facility] Last Admin: 09/16/19 21:02 Dose: 650 mg Last Vital Signs Temp Pulse Resp BP Pulse Ox 99.2 F 103 H 20 134/102 H 99 09/16/19 18:00 09/16/19 18:00 09/16/19 18:00 09/16/19 18:00 09/16/19 09:00 CBC, BMP 09/16/19 06:30 09/16/19 10:40 ESRD s/p uneventful initiation of HD now for watermelon inspector placement Plan - pt s/p permacath - d/c fluids - d/c po bicarb - HD today - serlogic workup ordered - discussed PD option again, she will think about it - discussed kidney biopsy, she will think about it
[2019-09-17] MEDS: oxyCODONE HCL 5 MG TABLET PO PRN (00:24)
[2019-09-17] MEDS: LEVOTHYROXINE NA 25 MCG TABLET (FP) PO SCH (06:29)
[2019-09-17 08:31] LABS: HEMATOCRIT 23.7 % (32.4-45.2); MCHC 33.9 g/dl (32.0-36.0); MEAN CELL VOLUME 88.3 fl (80-96); MEAN PLT VOLUME 8.6 fl (7.5-11.1); PLATELET COUNT 178 K/MM3 (134-434); RBC 2.69 M/mm3 (3.60-5.2); RDW 14.1 % (11.6-15.6); WHITE BLOOD COUNT 4.8 K/mm3 (4.0-10.0)
[2019-09-17 08:53] LABS: ALBUMIN 3.4 g/dl (3.4-5.0); BILIRUBIN,TOTAL 0.4 mg/dL (0.2-1); BLOOD UREA NITROGEN 33.4 mg/dL (7-18); CALCIUM 8.9 mg/dL (8.5-10.1); CREATININE 6.8 mg/dL (0.55-1.3); POTASSIUM 3.2 mmol/L (3.5-5.1); TOT PROT 6.8 g/dl (6.4-8.2)
[2019-09-17] MEDS: SODIUM BICARBONATE 650 MG TABLET PO SCH ×2 (09:23→21:35)
[2019-09-17] MEDS: ACETAMINOPHEN 325 MG TABLET (FP) PO PRN ×2 (09:52→21:35)
--- NOTE | 2019-09-17 12:06 | PN ---
Progress Note, Physician Chief Complaint: ESRD History of Present Illness: Previous notes and events reviewed awake and alert NAD s/p R chest permacath placement for HD complain of nausea denies chest pain or palpitations no reports of vaginal bleeding - Current Medication List Current Medications: Active Medications Acetaminophen (Tylenol -) 650 mg PO Q8H PRN PRN Reason: PAIN LEVEL 1 - 3 Last Admin: 09/17/19 09:52 Dose: 650 mg Sodium Chloride (Normal Saline -) 250 mls @ 3,000 mls/hr IV PRN PRN PRN Reason: Hypotension during Dialysis Stop: 09/16/19 14:31 Levothyroxine Sodium (Synthroid -) 25 mcg PO DAILY@0700 [facility] [place] Last Admin: 09/17/19 06:29 Dose: 25 mcg Oxycodone HCl (Roxicodone -) 5 mg PO Q8H PRN PRN Reason: PAIN LEVEL 7 - 10 Last Admin: 09/17/19 00:24 Dose: 5 mg Sodium Bicarbonate (Sodium Bicarbonate -) 650 mg PO BID [facility] [place] Last Admin: 09/17/19 09:23 Dose: 650 mg - Objective Vital Signs: Vital Signs Temperature 98.6 F 09/17/19 06:00 Pulse Rate 78 09/17/19 06:00 Respiratory Rate 20 09/17/19 06:00 Blood Pressure 126/78 09/17/19 06:00 O2 Sat by Pulse Oximetry (%) 99 09/17/19 09:00 Constitutional: Yes: No Distress, Calm Eyes: Yes: Conjunctiva Clear HENT: Yes: Atraumatic Cardiovascular: Yes: Regular Rate and Rhythm Respiratory: Yes: Regular, CTA Bilaterally Gastrointestinal: Yes: Normal Bowel Sounds, Soft Musculoskeletal: Yes: WNL Extremities: Yes: WNL Edema: No Neurological: Yes: Alert, Oriented Psychiatric: Yes: Alert, Oriented Labs: CBC, BMP 09/17/19 07:27 09/17/19 07:27 INR, PTT INR 0.92 (0.83-1.09) 09/14/19 15:31 Problem List - Problems (1) Asymptomatic bacteriuria 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: UA shows 1+ leuks, 1+ blood, 1+ protein UC pending no leukocytosis afebrile Code(s): R82.71 - BACTERIURIA (2) HTN (hypertension) 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: monitor BP Code(s): I10 - ESSENTIAL (PRIMARY) HYPERTENSION (3) Hypothyroidism 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: Levothyroxine Code(s): E03.9 - HYPOTHYROIDISM, UNSPECIFIED (4) RAVI (iron deficiency anemia) 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: Hg 8.0 anemia profile shows low Iron, low TIBC monitor Hg daily transfuse for Hg <7.0 to avoid fluid overload start on Iron Polysaccharide Code(s): D50.9 - IRON DEFICIENCY ANEMIA, UNSPECIFIED (5) Renal failure 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: Renal on board s/p permacath placement yesterday received HD x 2 BUN/Cr with downtrend 33.4/6.8 monitor renal function daily Renal US shows no hydronephrosis, right renal uuper pole cortex appears mildly echogenic 2.3cm nonspecific focus 6.8 Code(s): N19 - UNSPECIFIED KIDNEY FAILURE Qualifiers: Renal failure chronicity: acute Acute renal failure type: unspecified Qualified Code(s): N17.9 - Acute kidney failure, unspecified (6) Vaginal bleeding 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: 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
--- NOTE | 2019-09-17 12:09 | PN ---
Progress Note, Physician - Current Medication List Current Medications: Active Medications Acetaminophen (Tylenol -) 650 mg PO Q8H PRN PRN Reason: PAIN LEVEL 1 - 3 Last Admin: 09/17/19 09:52 Dose: 650 mg Sodium Chloride (Normal Saline -) 250 mls @ 3,000 mls/hr IV PRN PRN PRN Reason: Hypotension during Dialysis Stop: 09/16/19 14:31 Levothyroxine Sodium (Synthroid -) 25 mcg PO DAILY@0700 [facility] Last Admin: 09/17/19 06:29 Dose: 25 mcg Oxycodone HCl (Roxicodone -) 5 mg PO Q8H PRN PRN Reason: PAIN LEVEL 7 - 10 Last Admin: 09/17/19 00:24 Dose: 5 mg Potassium Chloride (Potassium Chloride Oral Liquid) 40 meq PO ONCE ONE Stop: 09/17/19 12:09 Sodium Bicarbonate (Sodium Bicarbonate -) 650 mg PO BID [facility] Last Admin: 09/17/19 09:23 Dose: 650 mg - Objective Vital Signs: Vital Signs Temperature 98.6 F 09/17/19 06:00 Pulse Rate 78 09/17/19 06:00 Respiratory Rate 20 09/17/19 06:00 Blood Pressure 126/78 09/17/19 06:00 O2 Sat by Pulse Oximetry (%) 99 09/17/19 09:00 Labs: CBC, BMP 09/17/19 07:27 09/17/19 07:27 INR, PTT INR 0.92 (0.83-1.09) 09/14/19 15:31 Problem List - Problems (1) Asymptomatic bacteriuria Code(s): R82.71 - BACTERIURIA (2) HTN (hypertension) Code(s): I10 - ESSENTIAL (PRIMARY) HYPERTENSION (3) Hypothyroidism Code(s): E03.9 - HYPOTHYROIDISM, UNSPECIFIED (4) RAVI (iron deficiency anemia) Code(s): D50.9 - IRON DEFICIENCY ANEMIA, UNSPECIFIED (5) Renal failure Code(s): N19 - UNSPECIFIED KIDNEY FAILURE Qualifiers: Renal failure chronicity: acute Acute renal failure type: unspecified Qualified Code(s): N17.9 - Acute kidney failure, unspecified (6) Vaginal bleeding Code(s): N93.9 - ABNORMAL UTERINE AND VAGINAL BLEEDING, UNSPECIFIED
[2019-09-17] MEDS ORDERED: POTASSIUM CHLORIDE ORAL LIQUID 20 MEQ/15 ML PO ONE (12:15)
[2019-09-17] MEDS ORDERED: ONDANSETRON *ODT* 4 MG TABLET SL PRN (12:20)
[2019-09-17] MEDS: ONDANSETRON 4 MG TABLET PO PRN (16:27)
--- NOTE | 2019-09-17 18:58 | PN ---
Progress Note (short form) - Note Progress Note: Problems 1. OLI 2. anemia 3. vaginal bleeding 4. hx of spinal lymphoma 5. hypothyroisism 6. htn Active Medications Acetaminophen (Tylenol -) 650 mg PO Q8H PRN PRN Reason: PAIN LEVEL 1 - 3 Last Admin: 09/17/19 09:52 Dose: 650 mg Sodium Chloride (Normal Saline -) 250 mls @ 3,000 mls/hr IV PRN PRN PRN Reason: Hypotension during Dialysis Stop: 09/16/19 14:31 Levothyroxine Sodium (Synthroid -) 25 mcg PO DAILY@0700 [facility] Last Admin: 09/17/19 06:29 Dose: 25 mcg Ondansetron HCl (Zofran -) 4 mg PO Q8H PRN PRN Reason: NAUSEA AND/OR VOMITING Last Admin: 09/17/19 16:27 Dose: 4 mg Oxycodone HCl (Roxicodone -) 5 mg PO Q8H PRN PRN Reason: PAIN LEVEL 7 - 10 Last Admin: 09/17/19 00:24 Dose: 5 mg Sodium Bicarbonate (Sodium Bicarbonate -) 650 mg PO BID [facility] Last Admin: 09/17/19 09:23 Dose: 650 mg Last Vital Signs Temp Pulse Resp BP Pulse Ox 98.8 F 108 H 20 125/75 99 09/17/19 18:00 09/17/19 18:00 09/17/19 18:00 09/17/19 18:00 09/17/19 09:00 Lungs clear Heart reg Abd soft nontender Ext no edema CBC, BMP 09/17/19 07:27 09/17/19 07:27 CBC, BMP 09/16/19 06:30 09/16/19 10:40 ESRD s/p uneventful initiation of HD 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
[2019-09-18] MEDS: LEVOTHYROXINE NA 25 MCG TABLET (FP) PO SCH (06:45)
[2019-09-18 08:53] LABS: HEMATOCRIT 24.8 % (32.4-45.2); HEMOGLOBIN 8.3 GM/dL (10.7-15.3); MCH 29.7 pg (25.7-33.7); MCHC 33.5 g/dl (32.0-36.0); MEAN CELL VOLUME 88.7 fl (80-96); MEAN PLT VOLUME 8.5 fl (7.5-11.1); PLATELET COUNT 184 K/MM3 (134-434); RBC 2.79 M/mm3 (3.60-5.2); RDW 14.1 % (11.6-15.6); WHITE BLOOD COUNT 4.5 K/mm3 (4.0-10.0)
--- NOTE | 2019-09-18 09:09 | PN ---
Progress Note, Physician - Current Medication List Current Medications: Active Medications Acetaminophen (Tylenol -) 650 mg PO Q8H PRN PRN Reason: PAIN LEVEL 1 - 3 Last Admin: 09/17/19 21:35 Dose: 650 mg Sodium Chloride (Normal Saline -) 250 mls @ 3,000 mls/hr IV PRN PRN PRN Reason: Hypotension during Dialysis Stop: 09/16/19 14:31 Levothyroxine Sodium (Synthroid -) 25 mcg PO DAILY@0700 [facility] Last Admin: 09/18/19 06:45 Dose: 25 mcg Ondansetron HCl (Zofran -) 4 mg PO Q8H PRN PRN Reason: NAUSEA AND/OR VOMITING Last Admin: 09/17/19 16:27 Dose: 4 mg Oxycodone HCl (Roxicodone -) 5 mg PO Q8H PRN PRN Reason: PAIN LEVEL 7 - 10 Last Admin: 09/17/19 00:24 Dose: 5 mg Sodium Bicarbonate (Sodium Bicarbonate -) 650 mg PO BID [facility] Last Admin: 09/17/19 21:35 Dose: 650 mg - Objective Vital Signs: Vital Signs Temperature 98.0 F 09/18/19 06:00 Pulse Rate 82 09/18/19 06:00 Respiratory Rate 20 09/18/19 06:00 Blood Pressure 110/70 09/18/19 06:00 O2 Sat by Pulse Oximetry (%) 96 09/17/19 21:00 Cardiovascular: Yes: Regular Rate and Rhythm Respiratory: Yes: Regular, CTA Bilaterally Gastrointestinal: Yes: Normal Bowel Sounds, Soft Labs: CBC, BMP 09/18/19 07:44 INR, PTT INR 0.92 (0.83-1.09) 09/14/19 15:31 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 - Problems (1) Asymptomatic bacteriuria 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: UA shows 1+ leuks, 1+ blood, 1+ protein UC pending Microbiology 09/14/19 15:31 Urine - Urine Clean Catch Urine Culture - Final Escherichia Coli no leukocytosis afebrile Code(s): R82.71 - BACTERIURIA (2) HTN (hypertension) 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: monitor BP Code(s): I10 - ESSENTIAL (PRIMARY) HYPERTENSION (3) Hypothyroidism 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: Levothyroxine Code(s): E03.9 - HYPOTHYROIDISM, UNSPECIFIED (4) RAVI (iron deficiency anemia) 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: Hg 8.0 anemia profile shows low Iron, low TIBC monitor Hg daily transfuse for Hg <7.0 to avoid fluid overload start on Iron Polysaccharide Code(s): D50.9 - IRON DEFICIENCY ANEMIA, UNSPECIFIED (5) Renal failure 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: Renal on board s/p permacath placement yesterday received HD x 2 BUN/Cr with downtrend 33.4/6.8 monitor renal function daily Renal US shows no hydronephrosis, right renal uuper pole cortex appears mildly echogenic 2.3cm nonspecific focus 6.8 Code(s): N19 - UNSPECIFIED KIDNEY FAILURE Qualifiers: Renal failure chronicity: acute Acute renal failure type: unspecified Qualified Code(s): N17.9 - Acute kidney failure, unspecified (6) Vaginal bleeding 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
[2019-09-18 09:23] LABS: ALBUMIN 3.6 g/dl (3.4-5.0); BILIRUBIN,TOTAL 0.4 mg/dL (0.2-1); BLOOD UREA NITROGEN 42.2 mg/dL (7-18); CALCIUM 9.5 mg/dL (8.5-10.1); POTASSIUM 3.3 mmol/L (3.5-5.1); TOT PROT 7.2 g/dl (6.4-8.2)
[2019-09-18 10:01] LABS: CREATININE 8.5 mg/dL (0.55-1.3)
[2019-09-18] MEDS: SODIUM BICARBONATE 650 MG TABLET PO SCH ×2 (10:58→23:01)
[2019-09-18 11:07] LABS: ANTIGLOMERULAR BASEMENT MEN.AB 2 units (0-20)
--- NOTE | 2019-09-18 11:38 | PN ---
Progress Note (short form) - Note Progress Note: ID CONSULT DICTATED ASYMPTOMATIC BACTERURIA ACUTE RENAL FAILURE NO ANTIBOTIC THERAPY ADVISED PT DECLINE HIV TESTING
--- NOTE | 2019-09-18 12:42 | CONS ---
INFECTIOUS DISEASE CONSULTATION DATE OF CONSULTATION: DATE OF DICTATION: 09/18/2019 HISTORY: The patient is a 44-year-old female who was evaluated for positive urine culture. She was admitted to the hospital on September 14, 2019. She had been having excessive vaginal bleeding for several weeks prior to admission. She had presented to her primary care doctor where she was found to be in acute renal failure with a creatinine of 12. She was admitted to the hospital where she was evaluated by Nephrology. A dialysis catheter was inserted, and she received 2 hemodialysis sessions. Urinalysis showed 23 white cells. Urine culture grew 60-70,000 colonies of E. coli. Patient denies any urinary tract complaints. She denies any dysuria or hematuria. No complaints of suprapubic or flank pain. She has been abdomen with a normal white blood cell count. PAST MEDICAL HISTORY: Positive for hypertension and spinal lymphoma. ALLERGIES: PENICILLIN. Reports rash. MEDICATIONS: Include Synthroid, oxycodone, potassium. SOCIAL HISTORY: Positive for tobacco use. She is sexually active with 1 partner. Does not use condoms. She states she tested HIV negative years ago, not recently. She denies history of sexually transmitted diseases. No history of blood transfusions or intravenous drug use. LABORATORY DATA: White count 4.5, hematocrit 24.8, platelet count 184, creatinine 8.5. Chest x-ray negative for acute infiltrate. Sonogram negative for hydronephrosis. PHYSICAL EXAMINATION: General: She is awake and alert. Seated in bed in no acute distress. Vital Signs: Temperature 98.8, blood pressure 146/87, pulse 95 regular, respirations 18 per minute. HEENT: Sclerae anicteric. Heart: Sounds S1, S2. Lungs: Clear. Chest Wall: Dialysis catheter present in the right upper chest. Abdomen: Soft, nontender. No suprapubic or flank tenderness. Extremities: Negative for edema. IMPRESSION: 1. Asymptomatic bacteriuria. 2. Acute renal failure, unclear etiology. PLAN: No antibiotic therapy advised in this patient with asymptomatic bacteriuria. No evidence of systemic infection. Patient declines HIV testing. Thank you for the kind referral. AGGIE ABDULLAHI M.D. [id number]
[2019-09-18] MEDS ORDERED: POTASSIUM CHLORIDE TABS 20 MEQ TABLET.ER (FP) PO ONE (16:45)
--- NOTE | 2019-09-18 16:48 | PN ---
Progress Note, Physician History of Present Illness: Pt seen and examined at bedside. She is awake and alert. She denies shortness of breath. - Current Medication List Current Medications: Active Medications Acetaminophen (Tylenol -) 650 mg PO Q8H PRN PRN Reason: PAIN LEVEL 1 - 3 Last Admin: 09/17/19 21:35 Dose: 650 mg Sodium Chloride (Normal Saline -) 250 mls @ 3,000 mls/hr IV PRN PRN PRN Reason: Hypotension during Dialysis Stop: 09/16/19 14:31 Levothyroxine Sodium (Synthroid -) 25 mcg PO DAILY@0700 [facility] Last Admin: 09/18/19 06:45 Dose: 25 mcg Ondansetron HCl (Zofran -) 4 mg PO Q8H PRN PRN Reason: NAUSEA AND/OR VOMITING Last Admin: 09/17/19 16:27 Dose: 4 mg Potassium Chloride (K-Dur -) 40 meq PO ONCE ONE Stop: 09/18/19 16:46 Sodium Bicarbonate (Sodium Bicarbonate -) 650 mg PO BID [facility] Last Admin: 09/18/19 10:58 Dose: 650 mg - Objective Vital Signs: Vital Signs Temperature 98.5 F 09/18/19 14:00 Pulse Rate 98 H 09/18/19 14:00 Respiratory Rate 18 09/18/19 14:00 Blood Pressure 143/90 09/18/19 14:00 O2 Sat by Pulse Oximetry (%) 96 09/18/19 09:00 Constitutional: Yes: Calm Eyes: Yes: Conjunctiva Clear HENT: Yes: Atraumatic Neck: Yes: Supple Cardiovascular: Yes: S1, S2 Respiratory: Yes: CTA Bilaterally Gastrointestinal: Yes: Normal Bowel Sounds, Soft Genitourinary: Yes: WNL Musculoskeletal: Yes: WNL Edema: No Neurological: Yes: Oriented Psychiatric: Yes: Oriented Labs: CBC, BMP 09/18/19 07:44 09/18/19 07:44 INR, PTT INR 0.92 (0.83-1.09) 09/14/19 15:31 Problem List - Problems (1) Acute renal failure (ARF) Code(s): N17.9 - ACUTE KIDNEY FAILURE, UNSPECIFIED (2) HTN (hypertension) Code(s): I10 - ESSENTIAL (PRIMARY) HYPERTENSION 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 Current Medications Generic Name Dose Route Start Last Admin Trade Name Freq PRN Reason Stop Dose Admin Acetaminophen 650 mg 09/15/19 13:04 09/17/19 21:35 Tylenol - PO 650 mg Q8H PRN Administration PAIN LEVEL 1 - 3 Sodium Chloride 250 mls @ 3,000 mls/hr 09/15/19 14:31 Normal Saline - IV 09/16/19 14:31 PRN PRN Hypotension during Dialysis Levothyroxine Sodium 25 mcg 09/16/19 07:00 09/18/19 06:45 Synthroid - PO 25 mcg DAILY@0700 [facility] Administration Ondansetron HCl 4 mg 09/17/19 12:26 09/17/19 16:27 Zofran - PO 4 mg Q8H PRN Administration NAUSEA AND/OR VOMITING Potassium Chloride 40 meq 09/18/19 16:45 K-Dur - PO 09/18/19 16:46 ONCE ONE Sodium Bicarbonate 650 mg 09/15/19 22:00 09/18/19 10:58 Sodium Bicarbonate - PO 650 mg BID [facility] Administration Impression 1. OLI 2. anemia 3. vaginal bleeding 4. hx of spinal lymphoma 5. hypothyroisism 6. htn Plan - d/c bicarb - replace potassium - HD tomorrow - follow serlogies - pt considering biopsy
[2019-09-18] MEDS ORDERED: SODIUM CHLORIDE 250 ML IV PRN (16:50)
[2019-09-18] MEDS: ACETAMINOPHEN 325 MG TABLET (FP) PO PRN (16:56)
[2019-09-18] MEDS: DOCUSATE SODIUM 100 MG CAPSULE (FP) PO SCH ×2 (17:01→23:01)
[2019-09-19 03:06] LABS: FIBROSIS SCORE. 0.06 (0.00-0.21); HCV ALPHA 2 MACRO CHART 157 mg/dL (110-276); NECRO.INFLAM ACT.SCORE 0.01 (0.00-0.17); NECROINFLAM. ACTIVITY GRADE A0-No activity (.)
[2019-09-19] MEDS: LEVOTHYROXINE NA 25 MCG TABLET (FP) PO SCH (06:34)
[2019-09-19] MEDS: ONDANSETRON 4 MG TABLET PO PRN (07:59)
[2019-09-19 09:27] LABS: HEMATOCRIT 24.7 % (32.4-45.2); HEMOGLOBIN 8.4 GM/dL (10.7-15.3); MCH 29.8 pg (25.7-33.7); MCHC 33.8 g/dl (32.0-36.0); MEAN CELL VOLUME 88.1 fl (80-96); MEAN PLT VOLUME 8.3 fl (7.5-11.1); PLATELET COUNT 178 K/MM3 (134-434); RDW 14.3 % (11.6-15.6); WHITE BLOOD COUNT 4.8 K/mm3 (4.0-10.0)
--- NOTE | 2019-09-19 09:40 | DS ---
Physical Examination Vital Signs: Vital Signs Temperature 98.2 F 09/19/19 08:30 Pulse Rate 85 09/19/19 09:05 Respiratory Rate 18 09/19/19 09:05 Blood Pressure 141/101 H 09/19/19 09:05 O2 Sat by Pulse Oximetry (%) 98 09/18/19 21:00 Cardiovascular: Yes: Regular Rate and Rhythm Respiratory: Yes: Regular, CTA Bilaterally Gastrointestinal: Yes: Normal Bowel Sounds, Soft Labs: CBC, BMP 09/19/19 08:45 Discharge Summary Problems reviewed: Yes Reason For Visit: RENAL FAILURE Current Active Problems Acute renal failure (ARF) (Acute) Asymptomatic bacteriuria (Acute) Chronic back pain (Acute) HTN (hypertension) (Acute) Hypothyroidism (Acute) RAVI (iron deficiency anemia) (Acute) Marijuana smoker, continuous (Acute) Renal failure (Acute) Vaginal bleeding (Acute) Hospital Course: Problems (1) Asymptomatic bacteriuria 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: UA shows 1+ leuks, 1+ blood, 1+ protein UC pending Microbiology 09/14/19 15:31 Urine - Urine Clean Catch Urine Culture - Final Escherichia Coli no abx per id no leukocytosis afebrile Code(s): R82.71 - BACTERIURIA (2) HTN (hypertension) 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: monitor BP Code(s): I10 - ESSENTIAL (PRIMARY) HYPERTENSION (3) Hypothyroidism 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: Levothyroxine Code(s): E03.9 - HYPOTHYROIDISM, UNSPECIFIED (4) RAVI (iron deficiency anemia) 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: Hg 8.0 anemia profile shows low Iron, low TIBC monitor Hg daily transfuse for Hg <7.0 to avoid fluid overload start on Iron Polysaccharide Code(s): D50.9 - IRON DEFICIENCY ANEMIA, UNSPECIFIED (5) Renal failure 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: Renal on board s/p permacath placement yesterday received HD x 2 BUN/Cr with downtrend 33.4/6.8 monitor renal function daily Renal US shows no hydronephrosis, right renal uuper pole cortex appears mildly echogenic 2.3cm nonspecific focus 6.8 Code(s): N19 - UNSPECIFIED KIDNEY FAILURE Qualifiers: Renal failure chronicity: acute Acute renal failure type: unspecified Qualified Code(s): N17.9 - Acute kidney failure, unspecified (6) 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 bleeding 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: 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 US shows 0.8cm endometrial thickening, 6.4cm and 4.7cm right ovarian cyst containing intraluminal debris, 2.3cm left ovarian cyst Code(s): N93.9 - ABNORMAL UTERINE AND VAGINAL BLEEDING, UNSPECIFIED patient will need HD center for outpatient followup, discharge home when patient has scheduled HD at center Condition: Stable - Instructions Referrals: Ant Villanueva [Primary Care Provider] - 1 Week Sonia Garg MD [Staff Physician] - - Home Medications Comprehensive Discharge Medication List: Ambulatory Orders Acetaminophen [Tylenol .Regular Strength -] 650 mg PO Q8H PRN tablet 09/19/19 Docusate Sodium [Colace -] 100 mg PO BID capsule 09/19/19 Levothyroxine [Synthroid -] 25 mcg PO DAILY@0700 #30 tablet 09/19/19
[2019-09-19 10:04] LABS: ALBUMIN 3.6 g/dl (3.4-5.0); BILIRUBIN,TOTAL 0.3 mg/dL (0.2-1); BLOOD UREA NITROGEN 52.4 mg/dL (7-18); CALCIUM 9.1 mg/dL (8.5-10.1); MAGNESIUM 2.3 mg/dL (1.8-2.4); POTASSIUM 3.6 mmol/L (3.5-5.1); TOT PROT 7.2 g/dl (6.4-8.2)
[2019-09-19 10:08] LABS: CREATININE 9.5 mg/dL (0.55-1.3)
[2019-09-19] MEDS: DOCUSATE SODIUM 100 MG CAPSULE (FP) PO SCH ×2 (13:21→22:11)
[2019-09-19] MEDS: SODIUM BICARBONATE 650 MG TABLET PO SCH (13:21)
--- NOTE | 2019-09-19 16:06 | PN ---
Progress Note, Physician History of Present Illness: Pt seen and examined at bedside. She tolerated HD today. SHe denies shortness of breath. - Current Medication List Current Medications: Active Medications Acetaminophen (Tylenol -) 650 mg PO Q8H PRN PRN Reason: PAIN LEVEL 1 - 3 Last Admin: 09/18/19 16:56 Dose: 650 mg Docusate Sodium (Colace -) 100 mg PO BID [facility] Last Admin: 09/19/19 13:21 Dose: 100 mg Sodium Chloride (Normal Saline -) 250 mls @ 3,000 mls/hr IV PRN PRN PRN Reason: Hypotension during Dialysis Stop: 09/19/19 16:50 Levothyroxine Sodium (Synthroid -) 25 mcg PO DAILY@0700 [facility] Last Admin: 09/19/19 06:34 Dose: 25 mcg Ondansetron HCl (Zofran -) 4 mg PO Q8H PRN PRN Reason: NAUSEA AND/OR VOMITING Last Admin: 09/19/19 07:59 Dose: 4 mg Sodium Bicarbonate (Sodium Bicarbonate -) 650 mg PO BID [facility] Last Admin: 09/19/19 13:21 Dose: 650 mg - Objective Vital Signs: Vital Signs Temperature 99.1 F 09/19/19 14:00 Pulse Rate 102 H 09/19/19 14:00 Respiratory Rate 18 09/19/19 14:00 Blood Pressure 139/99 09/19/19 14:00 O2 Sat by Pulse Oximetry (%) 98 09/19/19 09:00 Constitutional: Yes: Calm Eyes: Yes: Conjunctiva Clear HENT: Yes: Atraumatic Neck: Yes: Supple Cardiovascular: Yes: S1, S2 Respiratory: Yes: CTA Bilaterally Gastrointestinal: Yes: Normal Bowel Sounds, Soft Genitourinary: Yes: WNL Musculoskeletal: Yes: WNL Edema: No Neurological: Yes: Oriented Psychiatric: Yes: Oriented Labs: CBC, BMP 09/19/19 08:45 09/19/19 08:45 INR, PTT INR 0.92 (0.83-1.09) 09/14/19 15:31 Problem List - Problems (1) Acute renal failure (ARF) Code(s): N17.9 - ACUTE KIDNEY FAILURE, UNSPECIFIED (2) HTN (hypertension) Code(s): I10 - ESSENTIAL (PRIMARY) HYPERTENSION 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 Current Medications Generic Name Dose Route Start Last Admin Trade Name Freq PRN Reason Stop Dose Admin Acetaminophen 650 mg 09/15/19 13:04 09/18/19 16:56 Tylenol - PO 650 mg Q8H PRN Administration PAIN LEVEL 1 - 3 Docusate Sodium 100 mg 09/18/19 16:50 09/19/19 13:21 Colace - PO 100 mg BID [facility] Administration Sodium Chloride 250 mls @ 3,000 mls/hr 09/18/19 16:50 Normal Saline - IV 09/19/19 16:50 PRN PRN Hypotension during Dialysis Levothyroxine Sodium 25 mcg 09/16/19 07:00 09/19/19 06:34 Synthroid - PO 25 mcg DAILY@0700 [facility] Administration Ondansetron HCl 4 mg 09/17/19 12:26 09/19/19 07:59 Zofran - PO 4 mg Q8H PRN Administration NAUSEA AND/OR VOMITING Sodium Bicarbonate 650 mg 09/15/19 22:00 09/19/19 13:21 Sodium Bicarbonate - PO 650 mg BID [facility] Administration Impression 1. ESRD 2. anemia 3. vaginal bleeding 4. hx of spinal lymphoma 5. hypothyroisism 6. htn 7. OLI Plan - HD today - no need for po bicarb as she is on HD - serologies pending - placement pending - she declined kidney biopsy at this time
[2019-09-19 17:11] LABS: ATYPICAL pANCA <1:20 titer (Neg:<1:20); C-ANCA <1:20 titer (Neg:<1:20)
[2019-09-19] MEDS: ACETAMINOPHEN 325 MG TABLET (FP) PO PRN (22:11)
[2019-09-20] MEDS: LEVOTHYROXINE NA 25 MCG TABLET (FP) PO SCH (06:13)
[2019-09-20 09:08] LABS: BLOOD UREA NITROGEN 26.6 mg/dL (7-18); CALCIUM 9.3 mg/dL (8.5-10.1); CREATININE 6.4 mg/dL (0.55-1.3); MAGNESIUM 2.1 mg/dL (1.8-2.4); POTASSIUM 4.4 mmol/L (3.5-5.1)
[2019-09-20] MEDS: DOCUSATE SODIUM 100 MG CAPSULE (FP) PO SCH (10:29)
--- NOTE | 2019-09-20 13:46 | PN ---
Progress Note, Physician History of Present Illness: Pt seen and examined at bedside. She is awake and alert. She denies shortness of breath. - Current Medication List Current Medications: Active Medications Acetaminophen (Tylenol -) 650 mg PO Q8H PRN PRN Reason: PAIN LEVEL 1 - 3 Last Admin: 09/19/19 22:11 Dose: 650 mg Docusate Sodium (Colace -) 100 mg PO BID [facility] Last Admin: 09/20/19 10:29 Dose: 100 mg Sodium Chloride (Normal Saline -) 250 mls @ 3,000 mls/hr IV PRN PRN PRN Reason: Hypotension during Dialysis Stop: 09/19/19 16:50 Levothyroxine Sodium (Synthroid -) 25 mcg PO DAILY@0700 [facility] Last Admin: 09/20/19 06:13 Dose: 25 mcg Ondansetron HCl (Zofran -) 4 mg PO Q8H PRN PRN Reason: NAUSEA AND/OR VOMITING Last Admin: 09/19/19 07:59 Dose: 4 mg - Objective Vital Signs: Vital Signs Temperature 98.1 F 09/20/19 10:29 Pulse Rate 100 H 09/20/19 10:29 Respiratory Rate 09/20/19 10:29 Blood Pressure 130/94 09/20/19 10:29 O2 Sat by Pulse Oximetry (%) 99 09/19/19 21:00 Constitutional: Yes: Calm Eyes: Yes: Conjunctiva Clear HENT: Yes: Atraumatic Neck: Yes: Supple Cardiovascular: Yes: S1, S2 Respiratory: Yes: CTA Bilaterally Gastrointestinal: Yes: Normal Bowel Sounds, Soft Genitourinary: Yes: WNL Musculoskeletal: Yes: WNL Edema: No Neurological: Yes: Oriented Psychiatric: Yes: Oriented Labs: CBC, BMP 09/19/19 08:45 09/20/19 07:27 INR, PTT INR 0.92 (0.83-1.09) 09/14/19 15:31 Problem List - Problems (1) Acute renal failure (ARF) Code(s): N17.9 - ACUTE KIDNEY FAILURE, UNSPECIFIED (2) HTN (hypertension) Code(s): I10 - ESSENTIAL (PRIMARY) HYPERTENSION 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 Current Medications Generic Name Dose Route Start Last Admin Trade Name Freq PRN Reason Stop Dose Admin Acetaminophen 650 mg 09/15/19 13:04 09/19/19 22:11 Tylenol - PO 650 mg Q8H PRN Administration PAIN LEVEL 1 - 3 Docusate Sodium 100 mg 09/18/19 16:50 09/20/19 10:29 Colace - PO 100 mg BID [facility] Administration Sodium Chloride 250 mls @ 3,000 mls/hr 09/18/19 16:50 Normal Saline - IV 09/19/19 16:50 PRN PRN Hypotension during Dialysis Levothyroxine Sodium 25 mcg 09/16/19 07:00 09/20/19 06:13 Synthroid - PO 25 mcg DAILY@0700 [facility] Administration Ondansetron HCl 4 mg 09/17/19 12:26 09/19/19 07:59 Zofran - PO 4 mg Q8H PRN Administration NAUSEA AND/OR VOMITING Laboratory Tests 09/15/19 09/15/19 08:10 08:10 DELFINO M-Juan Not observed BREANNA Screen Negative c-ANCA <1:20 Proteinase 3 (PR3) <3.5 p-ANCA <1:20 Atypical p-ANCA <1:20 Myeloperoxidase Ab <9.0 Double Strand DNA Ab <1 Glomerular Base Memb Ab 2 Impression 1. ESRD 2. anemia 3. vaginal bleeding 4. hx of spinal lymphoma 5. hypothyroisism 6. htn 7. OLI Plan - HD tomorrow - pt now has a slot as outpt - renal diet - will need fistula as outpt - she declined kidney biopsy at this time
--- NOTE | 2019-09-20 14:44 | DS ---
Physical Examination Vital Signs: Vital Signs Temperature 98.1 F 09/20/19 10:29 Pulse Rate 100 H 09/20/19 10:29 Respiratory Rate 20 09/20/19 10:29 Blood Pressure 130/94 09/20/19 10:29 O2 Sat by Pulse Oximetry (%) 99 09/19/19 21:00 Constitutional: Yes: Well Nourished, No Distress HENT: Yes: Atraumatic, Normocephalic Neck: Yes: Supple Cardiovascular: Yes: Regular Rate and Rhythm Respiratory: Yes: Regular Gastrointestinal: Yes: Normal Bowel Sounds Neurological: Yes: Alert, Oriented Labs: CBC, BMP 09/19/19 08:45 09/20/19 07:27 Discharge Summary Problems reviewed: Yes Reason For Visit: RENAL FAILURE Current Active Problems Acute renal failure (ARF) (Acute) Asymptomatic bacteriuria (Acute) Chronic back pain (Acute) HTN (hypertension) (Acute) Hypothyroidism (Acute) RAVI (iron deficiency anemia) (Acute) Marijuana smoker, continuous (Acute) Renal failure (Acute) Vaginal bleeding (Acute) Hospital Course: Problems (1) Asymptomatic bacteriuria 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: UA shows 1+ leuks, 1+ blood, 1+ protein UC pending Microbiology 09/14/19 15:31 Urine - Urine Clean Catch Urine Culture - Final Escherichia Coli no abx per id no leukocytosis afebrile Code(s): R82.71 - BACTERIURIA (2) HTN (hypertension) 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: monitor BP Code(s): I10 - ESSENTIAL (PRIMARY) HYPERTENSION (3) Hypothyroidism 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: Levothyroxine Code(s): E03.9 - HYPOTHYROIDISM, UNSPECIFIED (4) RAVI (iron deficiency anemia) 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: Hg 8.0 anemia profile shows low Iron, low TIBC monitor Hg daily transfuse for Hg <7.0 to avoid fluid overload start on Iron Polysaccharide Code(s): D50.9 - IRON DEFICIENCY ANEMIA, UNSPECIFIED (5) Renal failure 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: Renal on board s/p permacath placement yesterday received HD x 2 BUN/Cr with downtrend 33.4/6.8 monitor renal function daily Renal US shows no hydronephrosis, right renal uuper pole cortex appears mildly echogenic 2.3cm nonspecific focus 6.8 Code(s): N19 - UNSPECIFIED KIDNEY FAILURE Qualifiers: Renal failure chronicity: acute Acute renal failure type: unspecified Qualified Code(s): N17.9 - Acute kidney failure, unspecified (6) Vaginal bleeding 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: FUR EXAMINER consult Hg 8.0 US shows 0.8cm endometrial thickening, 6.4cm and 4.7cm right ovarian cyst containing intraluminal debris, 2.3cm left ovarian cyst Code(s): N93.9 - ABNORMAL UTERINE AND VAGINAL BLEEDING, UNSPECIFIED Patient has slot at [facility] //sat 230 pm. Condition: Improved - Instructions Referrals: Ant Villanueva [Primary Care Provider] - 1 Week Sonia Garg MD [Staff Physician] - Disposition: HOME - Home Medications Comprehensive Discharge Medication List: Ambulatory Orders Acetaminophen [Tylenol .Regular Strength -] 650 mg PO Q8H PRN tablet 09/19/19 Docusate Sodium [Colace -] 100 mg PO BID capsule 09/19/19 Levothyroxine [Synthroid -] 25 mcg PO DAILY@0700 #30 tablet 09/19/19 Prescription Drug Monitoring Program (I-STOP) results: I-STOP reviewed and no issues identified
[2019-09-20 15:21] VITALS: BP 119/96; PULSE 102; TEMP 99
--- NOTE | 2019-09-27 18:40 | OP ---
DATE OF OPERATION: 09/15/2019 PREOPERATIVE DIAGNOSIS: Acute renal failure. POSTOPERATIVE DIAGNOSIS: Acute renal failure. PROCEDURE: Insertion of PermCath. SURGEON: Arias Brar DO ANESTHESIA: Fractional. BLOOD LOSS: 20 mL. Patient is a 44-year-old female who has chronic renal failure and now comes in with acute renal failure and needs temporary dialysis catheter placement. Patient was consented for the procedure, understanding all risks, benefits, and alternatives, was then taken to the operating room. Once in the operating room, was laid on the operating table in supine manner. The area of the right neck and chest were prepped and draped in a sterile surgical manner. Under ultrasound guidance, we were able to visualize the right internal jugular vein, and 10 mL of lidocaine 1% were injected there. We then went ahead and used our micropuncture needle, punctured the right internal jugular vein. Micropuncture wire was inserted, and micropuncture sheath was inserted. A 0.035 floppy guidewire was inserted under fluoroscopy. We then injected 10 mL of lidocaine 1% above and below the clavicle. We then took our number-11 blade and made a 1-cm incision at the puncture site. We then took our 15 blade and made a 1-cm incision below the clavicle. We then tunneled the PermCath up to the puncture site. We then placed our breakaway sheath over the guidewire into the vein under fluoroscopy, and the cannula and guidewire were removed. Catheter was placed inside the sheath. Sheath was broken away as the catheter was placed inside the vein. Neck of the catheter was nice and smooth. Tip of the catheter was located outside the right atrium. We then karina back on each port of the catheter, and there was good flow. Heparinized saline was injected, and 2000 units of IV heparin were injected into each port. We then used 4-0 Biosyn, and 2 simple stitches were placed at the puncture site; 3-0 nylon used, and the catheter secured to the skin. BIOPATCH, Steri-Strips, 4 x 4, Tegaderms were placed. Patient tolerated the procedure with no complications. Patient transferred to PACU in stable condition, where a chest x-ray will be ordered. ARIAS BRAR DO SEED POTATO ARRANGER/[id number]
== END 2019-09-20 16:29 | disposition home or self-care (01) | DRG 673 ==
LOC: JER 15:10 → JERBED 17:13 → J5S 09-15 16:59
PROVIDERS: ADMIT Internal Medicine; ATTEND Family Medicine
PROC: 05HM33Z Insertion of Infusion Device into Right Internal Jugular Vein, Percutaneous Approach (ICD-10-PCS; 2019-09-15)
PROC: B513ZZA Fluoroscopy of Right Jugular Veins, Guidance (ICD-10-PCS; 2019-09-15)
PROC: 0JH63XZ Insertion of Tunneled Vascular Access Device into Chest Subcutaneous Tissue and Fascia, Percutaneous Approach (ICD-10-PCS; principal; 2019-09-15 11:00)
DX: I12.0 Hypertensive chronic kidney disease with stage 5 chronic kidney disease or end stage renal disease (principal); N18.6 End stage renal disease; N17.9 Acute kidney failure, unspecified; D50.0 Iron deficiency anemia secondary to blood loss (chronic); R00.0 Tachycardia, unspecified; I10 Essential (primary) hypertension; E03.9 Hypothyroidism, unspecified; M54.9 Dorsalgia, unspecified; D64.9 Anemia, unspecified; N93.9 Abnormal uterine and vaginal bleeding, unspecified; F12.90 Cannabis use, unspecified, uncomplicated; G89.29 Other chronic pain; R82.71 Bacteriuria; N83.202 Unspecified ovarian cyst, left side; E50.9 Vitamin A deficiency, unspecified
CPT/HCPCS: 36415; 71045-TC-FY; 76000-TC-FY; 76775-TC; 76856-TC; 80048; 80053; 80307; 81003; 82172; 82565; 82728; 82977; 83010; 83516; 83520; 83540; 83550; 83735; 83883; 83930; 83935; 84100; 84155; 84156; 84165; 84300; 84439; 84443; 84460; 84520; 84703; 85025; 85027; 85610; 86038; 86225; 86256; 86704; 86706; 86707; 86708; 86709; 86803; 87086; 87186; 87340; 87522; 93005; 93010; 94760; 99285-25; J1644

== ENCOUNTER 2021-07-28 14:54 | Emergency (ER) | payer OTHER ==
[2021-07-28 15:08] VITALS: BP 94/70; PULSE 110; TEMP 98.4; BMI 22.9
[2021-07-29 13:54] LABS: BASO % 0.3 % (0-2.0); EOS % 0.1 % (0-4.5); HEMATOCRIT 29.2 % (32.4-45.2); HEMOGLOBIN 9.9 GM/dL (10.7-15.3); LYMPH % 16.9 % (8-40); MCH 27.9 pg (25.7-33.7); MCHC 33.8 g/dl (32.0-36.0); MEAN CELL VOLUME 82.6 fl (80-96); MEAN PLT VOLUME 8.4 fl (7.5-11.1); NEUT % 76.7 % (42.8-82.8); PLATELET COUNT 267 10^3/uL (134-434); RBC 3.54 M/mm3 (3.60-5.2); RDW 13.3 % (11.6-15.6); WHITE BLOOD COUNT 4.7 K/mm3 (4.0-10.0)
[2021-07-29 14:10] LABS: CHLORIDE 91 mmol/L (98-107); SODIUM 132 mmol/L (136-145)
[2021-07-29 14:15] LABS: BLOOD UREA NITROGEN 32.4 mg/dL (7-18); CALCIUM 8.5 mg/dL (8.5-10.1)
[2021-07-29 14:16] LABS: ALBUMIN 3.4 g/dl (3.4-5.0); CO2 24 mmol/L (21-32); GLUCOSE,RANDOM 110 mg/dL (74-106)
[2021-07-29 14:18] LABS: ALK PHOS 118 U/L (45-117)
[2021-07-29 14:19] LABS: IRON SERUM 76 ug/dL (50-175); SGOT/AST 13 U/L (15-37)
[2021-07-29 14:20] LABS: BILIRUBIN,TOTAL 1.4 mg/dL (0.2-1); TOT PROT 7.3 g/dl (6.4-8.2)
[2021-07-29 14:21] LABS: TOTAL IRON BINDING CAPACITY 239 ug/dL (250-450)
[2021-07-29 14:23] LABS: ANION GAP 17 MMOL/L (8-16); CREATININE 15.9 mg/dL (0.55-1.3); SGPT/ALT 15 U/L (13-61)
== END 2021-07-28 20:27 | disposition left against medical advice (07) ==
LOC: JER 14:54
DX: R53.1 Weakness (principal); R42 Dizziness and giddiness
CPT/HCPCS: 36415; 80053; 82728; 83540; 83550; 84466; 85025; 99281-25

== ENCOUNTER 2021-12-08 13:47 | Observation (INO) | payer OTHER ==
[2021-12-08 18:39] LABS: BASO % 0.8 % (0-2.0); EOS % 3.7 % (0-4.5); HEMATOCRIT 17.5 % (32.4-45.2); MCH 28.6 pg (25.7-33.7); MCHC 33.6 g/dl (32.0-36.0); MEAN CELL VOLUME 85.1 fl (80-96); MONO % 10.3 % (3.8-10.2); NEUT % 58.2 % (42.8-82.8); PLATELET COUNT 250 10^3/uL (134-434); RBC 2.05 M/mm3 (3.60-5.2); RDW 13.1 % (11.6-15.6); WHITE BLOOD COUNT 4.4 K/mm3 (4.0-10.0)
[2021-12-08 18:55] LABS: INR 1.04 (0.83-1.09)
[2021-12-08 18:58] LABS: ACTIVATED PTT 29.7 SECONDS (25.2-36.5); CHLORIDE 94 mmol/L (98-107); SODIUM 136 mmol/L (136-145)
[2021-12-08 18:59] LABS: CALCIUM 8.1 mg/dL (8.5-10.1)
[2021-12-08 19:00] LABS: ALBUMIN 2.7 g/dl (3.4-5.0); ANION GAP 13 MMOL/L (8-16); BLOOD UREA NITROGEN 58.8 mg/dL (7-18); CO2 28 mmol/L (21-32); GLUCOSE,RANDOM 94 mg/dL (74-106)
[2021-12-08 19:04] LABS: SGOT/AST 18 U/L (15-37); SGPT/ALT 32 U/L (13-61)
[2021-12-08 19:05] LABS: HEMOGLOBIN 5.9 GM/dL (10.7-15.3)
[2021-12-08 19:06] LABS: ALK PHOS 98 U/L (45-117); BILIRUBIN,TOTAL 0.3 mg/dL (0.2-1)
[2021-12-08 19:11] LABS: CREATININE 13.3 mg/dL (0.55-1.3)
[2021-12-08 22:50] LABS: RETICULOCYTES 1.04 % (0.5-1.5)
[2021-12-08 22:51] LABS: IRON SERUM 58 ug/dL (50-175); TOTAL IRON BINDING CAPACITY 191 ug/dL (250-450)
[2021-12-08] MEDS ORDERED: ACETAMINOPHEN 325 MG TABLET (FP) PO PRN (23:15)
[2021-12-08] MEDS ORDERED: ACETAMINOPHEN 325 MG TABLET (FP) ONE (23:21)
[2021-12-09] MEDS ORDERED: MELATONIN 5 MG TABLETS PO ONE (02:10)
[2021-12-09] MEDS ORDERED: MELATONIN 5 MG TABLETS ONE (02:25)
[2021-12-09 03:56] VITALS: BMI 27.8
[2021-12-09] MEDS: PERITONEAL DIALYSIS 2.5% SOLN 2,500 ML IP SCH ×3 (05:22→10:14)
[2021-12-09 07:12] VITALS: PULSE 75; TEMP 98.8
[2021-12-09 09:48] LABS: BASO % 0.6 % (0-2.0); EOS % 2.8 % (0-4.5); HEMATOCRIT 25.7 % (32.4-45.2); HEMOGLOBIN 9.1 GM/dL (10.7-15.3); LYMPH % 17.5 % (8-40); MCHC 35.5 g/dl (32.0-36.0); MEAN CELL VOLUME 84.5 fl (80-96); MEAN PLT VOLUME 7.2 fl (7.5-11.1); MONO % 7.5 % (3.8-10.2); NEUT % 71.6 % (42.8-82.8); PLATELET COUNT 237 10^3/uL (134-434); RBC 3.04 M/mm3 (3.60-5.2); RDW 14.2 % (11.6-15.6); WHITE BLOOD COUNT 6.8 K/mm3 (4.0-10.0)
[2021-12-09 10:00] LABS: CHLORIDE 94 mmol/L (98-107); SODIUM 133 mmol/L (136-145)
[2021-12-09 10:06] LABS: CALCIUM 8.1 mg/dL (8.5-10.1)
[2021-12-09 10:07] LABS: ALBUMIN 2.8 g/dl (3.4-5.0); ANION GAP 15 MMOL/L (8-16); BLOOD UREA NITROGEN 75.1 mg/dL (7-18); CO2 24 mmol/L (21-32); GLUCOSE,RANDOM 100 mg/dL (74-106); MAGNESIUM 1.8 mg/dL (1.8-2.4)
[2021-12-09 10:11] LABS: PHOSPHOROUS 6.7 mg/dL (2.5-4.9); SGOT/AST 21 U/L (15-37); SGPT/ALT 31 U/L (13-61)
[2021-12-09 10:13] LABS: ALK PHOS 98 U/L (45-117); BILIRUBIN,TOTAL 0.4 mg/dL (0.2-1); CREATININE 14.2 mg/dL (0.55-1.3)
[2021-12-09 12:55] VITALS: BP 140/80
== END 2021-12-09 10:30 | disposition home or self-care (01) ==
LOC: JER 13:47 → JERBED 20:33 → J2W 12-09 05:25
PROVIDERS: ADMIT Hospitalist; ATTEND Nurse Practitioner Acute Care
PROC: 30233N1 Transfusion of Nonautologous Red Blood Cells into Peripheral Vein, Percutaneous Approach (ICD-10-PCS; principal; 2021-12-08)
DX: N18.6 End stage renal disease (principal); Z99.2 Dependence on renal dialysis; D64.89 Other specified anemias; J45.909 Unspecified asthma, uncomplicated; E03.9 Hypothyroidism, unspecified; Z88.0 Allergy status to penicillin
CPT/HCPCS: 0241U-QW; 36415; 36430; 80053; 82607; 82746; 83540; 83550; 83735; 84100; 85025; 85045; 85610; 85730; 86850; 86900; 86901; 86922; 93005; 93010; 99285-25; G0378; P9058